=== PATIENT | male | born 1995 | race American Indian/Alaskan Native ===

== ENCOUNTER 2021-11-11 08:10 | Inpatient (IN) | payer OTHER ==
[2021-11-11] MEDS ORDERED: HYDROmorphone 1 MG/1 ML INJ IM ONE (08:22)
[2021-11-11] MEDS ORDERED: ONDANSETRON 4 MG ODT TAB PO NR (08:22)
--- NOTE | 2021-11-11 08:24 | Emergency Department Report ---
ED General Adult HPI - General Chief complaint: Sickle Cell Crisis Stated complaint: SICKLE CELL PAIN COVID+ PUI?: Yes Time Seen by Provider: 11/11/21 08:21 Source: patient, EMS (Verbal report received from emergency medical services. EMS documentation not available at time of chart dictation ), RN notes reviewed Mode of arrival: Stretcher Limitations: No Limitations - History of Present Illness Initial comments: The patient was evaluated in the emergency department for symptoms described in the history of present illness. He/she was evaluated in the context of the global COVID-19 pandemic, which necessitated consideration that the patient might be at risk for infection with the virus that causes COVID-19. Institution al protocols and algorithms that pertain to the evaluation of patients at risk for COVID-19 are in a state of rapid change based on information released by regulatory bodies including the CDC and federal and state organizations. These policies and algorithms were followed during the patient's care in the emergency department. Please note that these policies, procedures and recommendations changed on a rapid basis. During the entire history and physical examination, I had on complete personal protective equipment. The patient is a 26-year-old gentleman, who reports a history of sickle cell disease, and who is reportedly recently diagnosed with COVID-19, on November 07. Patient reports that he is not COVID-19 vaccinated, and also reports that he has been incarcerated for the past 4 years. He presents to the ER today with a complaint of "I am having sickle cell crisis pain." Patient describes a few days of back pain, extremity pain, chest wall pain, associated with Covid. Patient denies vomiting, diaphoresis, posterior leg pain/calf pain and swelling, travel, surgery, immobilization. His includes medications from his longterm facility include azithromycin and acetaminophen. The patient believes he can tolerate morphine and Dilaudid for pain. His pain is sharp throbbing and achy, increases with palpation and range of motion, and it decreases with rest. -: Gradual, days(s) Location: chest, back, left, right, upper extremity, lower extremity Quality: other Consistency: other Improves with: other Worsens with: other Associated Symptoms: other (As per history of present illness) - Related Data Allergies Allergy/AdvReac Type Severity Reaction Status Date / Time codeine Allergy Unknown Verified 11/11/21 09:02 ED Review of Systems ROS: Stated complaint: SICKLE CELL PAIN COVID+ Other details as noted in HPI Constitutional: malaise. denies: fever Eyes: denies: eye discharge ENT: congestion Respiratory: cough Cardiovascular: chest pain Gastrointestinal: denies: abdominal pain Genitourinary: denies: dysuria Musculoskeletal: back pain, arthralgia, myalgia Neurological: headache, weakness ED Physical Exam - General Limitations: No Limitations General appearance: alert, anxious - Head Head exam: Present: atraumatic, normocephalic - Eye Eye exam: Present: normal appearance, EOMI, scleral icterus (Minimal scleral i cterus is appreciated). Absent: nystagmus - ENT ENT exam: Present: normal exam, normal orophraynx, mucous membranes moist, normal external ear exam - Neck Neck exam: Present: normal inspection, full ROM. Absent: tenderness, meningismus - Respiratory Respiratory exam: Present: respiratory distress, chest wall tenderness, other (Pulmonary auscultation not performed secondary to lack of disposable stethoscope). Absent: stridor - Cardiovascular Cardiovascular Exam: Present: other (Cardiac auscultation not performed secondary to lack of disposable stethoscope) - GI/Abdominal GI/Abdominal exam: Present: soft. Absent: distended, tenderness, guarding, rebound, rigid, pulsatile mass - Rectal Rectal exam: Present: deferred - Extremities Exam Extremities exam: Present: normal inspection, full ROM, other (2+ pulses noted in the bilateral upper and lower extremities. There is no palpable cord. The bilateral lower extremities are symmetric. It is lower extremity long bony tenderness.). Absent: pedal edema, calf tenderness - Back Exam Back exam: Present: normal inspection, paraspinal tenderness. Absent: tenderness, CVA tenderness (R), CVA tenderness (L), muscle spasm - Neurological Exam Neurological exam: Present: alert, oriented X3, other (No facial droop. Tongue midline. Extraocular movements intact bilaterally. Facial sensation intact to light touch in V1, V2, V3 distribution bilaterally. 5 and a 5 strength in 4 extremities. Sensation intact to light touch in 4 extremities.). Absent: motor sensory deficit - Psychiatric Psychiatric exam: Present: anxious - Skin Skin exam: Present: warm, dry, intact, normal color. Absent: rash ED Course Vital Signs 11/11/21 11/11/21 11/11/21 10:22 10:28 10:41 Temperature 97.7 F Pulse Rate 71 Respiratory 18 17 17 Rate Blood Pressure 125/73 [Left] O2 Sat by Pulse 95 Oximetry - Reevaluation(s) Reevaluation #1: 11/11/21 09:18 Differential diagnosis, including but not limited to: COVID-19, costochondritis, pneumonia, pneumothorax, sickle cell crisis, myocarditis, pericarditis, coron meagan artery disease Assessment and plan: 26-year-old gentleman with a known history of sickle cell d isease, and recent diagnosis of COVID-19. EMS reports normal vital signs to myself in the field. The patient is not in any significant respiratory distress at this time. As per review of medications from his longterm facility, it appears that he is currently on azithromycin, for unclear reasons. We will obtain appropriate laboratory studies, EKG, x-ray the chest, and treat his symptoms. At the moment, he is resting comfortably on her stretcher, sipping liquid from a Styrofoam cup and a straw, and does not appear to be in significant distress. Presuming negative troponin, normal vital signs, myopericarditis very unlikely, as is pulmonary embolism. He has reproducible chest wall pain on my examination. Presuming negative troponin x1, symptoms present for days, therefore, myocardial infarction is ruled out as per the [employer] clinical policy, this patient is also low risk for major adverse cardiac event as per heart score 11/11/21 10:25 Patient looking much more comfortable at this time. He is found to have a leukocytosis, hyperbilirubinemia, elevated reticulocyte count, and 3% bands. X-ray of the chest suggest pneumonia versus acute chest syndrome. Given leukocytosis, known diagnosis of COVID-19, bandemia, laboratory studies, inability to closely follow-up with an outpatient medical physician, incarcerated status, relative immune compromise, recommend admission. IV fluids and antibiotics ordered. Additional pain medication also ordered. I discussed admission with the patient, and he is agreeable to this plan of care. COVID-19 laboratory studies ordered. Hospital physician, Dr. Marium Maurice to admit to [facility] ED Medical Decision Making - Lab Data Result diagrams: 11/11/21 08:55 11/11/21 08:55 Vital Signs 11/11/21 10:22 Respiratory 18 Rate Lab Results 11/11/21 11/11/21 11/11/21 Range/Units 08:55 08:55 08:55 WBC 13.0 H (4.5-11.0) K/mm3 RBC 2.03 L (3.65-5.03) M/mm3 Hgb 7.2 L (11.8-15.2) gm/dl Hct 21.0 L (35.5-45.6) % MCV 103 H (84-94) fl MCH 35 H (28-32) pg MCHC 34 (32-34) % RDW 19.2 H (13.2-15.2) % Plt Count 202 (140-440) K/mm3 Add Manual Diff Complete Total Counted 100 Seg Neuts % (Manual) 50.0 (40.0-70.0) % Band Neutrophils % 3.0 % Lymphocytes % (Manual) 35.0 (13.4-35.0) % Reactive Lymphs % (Man) 0 % Monocytes % (Manual) 8.0 H (0.0-7.3) % Eosinophils % (Manual) 2.0 (0.0-4.3) % Basophils % (Manual) 0 (0.0-1.8) % Metamyelocytes % 2.0 % Myelocytes % 0 % Promyelocytes % 0 % Blast Cells % 0 % Nucleated RBC % 7.0 H (0.0-0.9) % Seg Neutrophils # Man 6.5 (1.8-7.7) K/mm3 Band Neutrophils # 0.4 K/mm3 Lymphocytes # (Manual) 4.6 (1.2-5.4) K/mm3 Abs React Lymphs (Man) 0.0 K/mm3 Monocytes # (Manual) 1.0 H (0.0-0.8) K/mm3 Eosinophils # (Manual) 0.3 (0.0-0.4) K/mm3 Basophils # (Manual) 0.0 (0.0-0.1) K/mm3 Metamyelocytes # 0.3 K/mm3 Myelocytes # 0.0 K/mm3 Promyelocytes # 0.0 K/mm3 Blast Cells # 0.0 K/mm3 WBC Morphology Not Reportable Hypersegmented Neuts Not Reportable Hyposegmented Neuts Not Reportable Hypogranular Neuts Not Reportable Smudge Cells Not Reportable Toxic Granulation Not Reportable Toxic Vacuolation Not Reportable Dohle Bodies Not Reportable Pelger-Huet Anomaly Not Reportable Aric Rods Not Reportable Platelet Estimate Consistent w auto Clumped Platelets Not Reportable Plt Clumps, EDTA Not Reportable Large Platelets Not Reportable Giant Platelets Not Reportable Platelet Satelliting Not Reportable Plt Morphology Comment Not Reportable RBC Morphology Not Reportable Dimorphic RBCs Not Reportable Polychromasia Few Hypochromasia Not Reportable Poikilocytosis 2+ Anisocytosis 1+ Microcytosis Not Reportable Macrocytosis Not Reportable Spherocytes Not Reportable Pappenheimer Bodies Not Reportable Sickle Cells Few Target Cells Not Reportable Tear Drop Cells Not Reportable Ovalocytes Few Helmet Cells Not Reportable Escobar-[place] Bodies Not Reportable [place] Rings Not Reportable [place] Cells Not Reportable Bite Cells Not Reportable Crenated Cell Not Reportable Elliptocytes 1+ Acanthocytes (Spur) Not Reportable Rouleaux Not Reportable Hemoglobin C Crystals Not Reportable Schistocytes Not Reportable Malaria parasites Not Reportable Percent Retic 8.16 H (0.78-2.58) % Joseph Bodies Not Reportable Hem Pathologist Commnt No PT 13.6 (12.2-14.9) Sec. INR 0.94 (0.87-1.13) Sodium 139 (137-145) mmol/L Potassium 4.2 (3.6-5.0) mmol/L Chloride 102.1 (98-107) mmol/L Carbon Dioxide 22 (22-30) mmol/L Anion Gap 19 mmol/L BUN 6 L (9-20) mg/dL Creatinine 0.4 L (0.8-1.3) mg/dL Estimated GFR > 60 ml/min BUN/Creatinine Ratio 15 % Glucose 105 H (75-100) mg/dL Calcium 9.2 (8.4-10.2) mg/dL Magnesium 2.10 (1.7-2.3) mg/dL Total Bilirubin 5.40 H (0.1-1.2) mg/dL AST 42 H (5-40) units/L ALT 34 (7-56) units/L Alkaline Phosphatase 108 (35-129) units/L Total Creatine Kinase 70 (55-170) units/L Troponin T < 0.010 (0.00-0.029) ng/mL Total Protein 7.3 (6.3-8.2) g/dL Albumin 4.7 (3.9-5) g/dL Albumin/Globulin Ratio 1.8 % Vital Signs 11/11/21 11/11/21 11/11/21 10:22 10:28 10:41 Temperature 97.7 F Pulse Rate 71 Respiratory 18 17 17 Rate Blood Pressure 125/73 [Left] O2 Sat by Pulse 95 Oximetry - EKG Data -: EKG Interpreted by Wa EKG shows normal: sinus rhythm Rate: normal - EKG Data When compared to previous EKG there are: previous EKG unavailable 11/11/21 10:42 The EKG is interpreted at 10: 37 Sinus rhythm, rate 76 bpm. Normal axis, normal P wave axis, normal intervals, motion artifact, QTC is 429 ms, and there is high left ventricular voltage. This is an abnormal EKG. This EKG is not a STEMI - Radiology Data Radiology results: report reviewed, image reviewed CHEST 1 VIEW 11/11/2021 9:39 AM INDICATION / CLINICAL INFORMATION: COVID + hbss pain chest wall pain. COMPARISON: None available. FINDINGS: SUPPORT DEVICES: None. HEART / MEDIASTINUM: Heart size is upper limits of normal. LUNGS / PLEURA: Bilateral interstitial prominence. No focal lung consolidation. No pneumothorax. ADDITIONAL FINDINGS: Mild scoliosis of the thoracic spine. 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 IMPRESSION: 1. Bilateral interstitial prominence is nonspecific but can be seen with small airways disease. No focal lung consolidation. Acute chest syndrome cannot be excluded. Recommend clinical correlation. 2. Additional incidental findings as above. Signer Name: Florentin Dalton MD Signed: 11/11/2021 9:09 AM Workstation Name: [employer] Critical care attestation.: If time is entered above; I have spent that time in minutes in the direct care of this critically ill patient, excluding procedure time. ED Disposition Clinical Impression: COVID-19, Chest wall pain, Sickle cell pain crisis, COVID-19 vaccination not d one Disposition: 09 ADMITTED INPATIENT Is pt being admited?: Yes Does the pt Need Aspirin: No Condition: Good Instructions: Nonspecific Chest Pain, Adult Referrals: PRIMARY CARE, [Primary Care Provider] - 3-5 Days
[2021-11-11] MEDS ORDERED: HYDROmorphone 1 MG/1 ML INJ ONE (08:45)
[2021-11-11] MEDS ORDERED: HYDROmorphone 1 MG/1 ML INJ IV ONE ×4 (09:04→14:28)
[2021-11-11 09:20] LABS: Hemoglobin 7.2 gm/dl (11.8-15.2); Mean Corpuscular HGB Conc 34 % (32-34); Mean Corpuscular Volume 103 fl (84-94); Red Blood Count 2.03 M/mm3 (3.65-5.03); Red Cell Distribution Width 19.2 % (13.2-15.2)
[2021-11-11 09:24] LABS: Platelet Count 202 K/mm3 (140-440)
[2021-11-11 09:32] LABS: INR 0.94 (0.87-1.13)
[2021-11-11 09:38] LABS: Alanine Aminotransferase 34 units/L (7-56); Albumin 4.7 g/dL (3.9-5); Blood Urea Nitrogen 6 mg/dL (9-20); Calcium 9.2 mg/dL (8.4-10.2); Hemolysis Index 16
[2021-11-11 09:43] LABS: BUN/Creatinine Ratio 15
[2021-11-11 10:07] LABS: Band Neutrophils # (Manual) 0.4 K/mm3; Basophils % (Manual) 0 % (0.0-1.8); Total Cells Counted 100
[2021-11-11 10:08] LABS: Anisocytosis 1+; Ovalocytes Few; Poikilocytosis 2+; Sickle Cells Few
[2021-11-11 10:09] LABS: Platelet Estimate Consistent w Auto
--- NOTE | 2021-11-11 10:13 | XRay Report ---
CHEST 1 VIEW 11/11/2021 9:39 AM INDICATION / CLINICAL INFORMATION: COVID + hbss pain chest wall pain. COMPARISON: None available. FINDINGS: SUPPORT DEVICES: None. HEART / MEDIASTINUM: Heart size is upper limits of normal. LUNGS / PLEURA: Bilateral interstitial prominence. No focal lung consolidation. No pneumothorax. ADDITIONAL FINDINGS: Mild scoliosis of the thoracic spine. 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 IMPRESSION: 1. Bilateral interstitial prominence is nonspecific but can be seen with small airways disease. No fo alcira lung consolidation. Acute chest syndrome cannot be excluded. Recommend clinical correlation. 2. Additional incidental findings as above. Signer Name: Florentin Dalton MD Signed: 11/11/2021 10:09 AM Workstation Name: [employer]
[2021-11-11] MEDS ORDERED: KETOROLAC 30 MG/1 ML INJ IV ONE ×2 (10:18→14:30)
[2021-11-11] MEDS ORDERED: cefTRIAXone/NS 1 GM/50 ML 1 GM/50 ML BAG IV ONE (10:22)
[2021-11-11] MEDS ORDERED: AZITHROMYCIN/NS 500 MG/250 ML 500 MG/250 ML BAG IV ONE (10:22)
[2021-11-11] MEDS ORDERED: SODIUM CHLORIDE 0.9% 1000 ML 1,000 ML IV ONE (10:24)
[2021-11-11 11:20] LABS: C-Reactive Protein 1.2 mg/dL (0.00-1.30)
--- NOTE | 2021-11-11 14:29 | History and Physical Report ---
History of Present Illness Date of examination: 11/11/21 Date of admission: 11/11/21 10:27 History of present illness: 26-year-old -[place] male patient with significant past medical history sickle cell disease, and who is reportedly recently diagnosed with COVID-19, on November 07. Patient reports that he is not COVID-19 vaccinated, and also reports that he has been incarcerated for the past 4 years. He presents to the ER today with a complaint of "I am having sickle cell crisis pain." Patient describes a few days of back pain, extremity pain, chest wall pain, associated with Covid. Patient denies nausea ,vomiting, diaphoresis, posterior leg pain/calf pain and swelling, travel, surgery, immobilization. His includes medications from his long term facility include azithromycin and acetaminophen. The patient believes he can tolerate morphine and Dilaudid for pain. His pain is sharp throbbing and achy, increases with palpation and range of motion, and it decreases with rest. Initial work-up in the emergency room, chest x-ray bilateral interstitial prominence, leukocytosis, anemia with hemoglobin of 7.2. Denies fever or diaphoresis Reports that his he was positive for COVID-19 4 days ago. Past History Past Medical History: other (Sickle cell disease) Past Surgical History: No surgical history Social history: denies: smoking, alcohol abuse Family history: no significant family history Medications and Allergies Allergies Allergy/AdvReac Type Severity Reaction Status Date / Time codeine Allergy Unknown Verified 11/11/21 09:02 Active Meds: Active Medications Ondansetron HCl (Ondansetron 4 Mg Odt Tab) 4 mg PO NOW NR Stop: 11/11/21 23:00 Review of Systems Constitutional: weakness, no weight loss, no weight gain, no anorexia, no fatigue Ears, nose, mouth and throat: no nasal congestion, no nasal discharge Cardiovascular: no chest pain, no orthopnea, no palpitations Respiratory: cough with sputum, shortness of breath Gastrointestinal: no abdominal pain, no nausea, no vomiting Genitourinary Male: no dysuria, no hematuria Musculoskeletal: no myalgias, no arthritis Integumentary: no rash, no lesions Neurological: weakness, no tingling, no seizures, no syncope Psychiatric: no anxiety, no depression Endocrine: no cold intolerance, no heat intolerance Hematologic/Lymphatic: no easy bruising, no easy bleeding Allergic/Immunologic: no urticaria, no allergic rhinitis Exam - Constitutional Vitals: Temp Pulse Resp BP Pulse Ox 97.7 F 71 21 125/73 95 11/11/21 10:28 11/11/21 10:28 11/11/21 12:27 11/11/21 10:28 11/11/21 10:28 General appearance: Present: no acute distress, well-nourished - EENT Eyes: Present: PERRL, EOM intact - Neck Neck: Present: supple, normal ROM - Respiratory Respiratory effort: normal Respiratory: bilateral: diminished, rhonchi, negative: rales, wheezing - Cardiovascular Rhythm: regular Heart Sounds: Present: S1 & S2 - Extremities Extremities: no ischemia, No edema - Abdominal General gastrointestinal: Present: soft, non-tender, non-distended, normal bowel sounds - Integumentary Integumentary: Present: clear, warm - Musculoskeletal Musculoskeletal: strength equal bilaterally, generalized weakness - Psychiatric Psychiatric: appropriate mood/affect, cooperative - Neurologic Neurologic: moves all extremities HEART Score - HEART Score Troponin: Troponin T < 0.010 ng/mL (0.00-0.029) 11/11/21 08:55 Results - Labs CBC & Chem 7: 11/11/21 08:55 11/11/21 11:04 Labs: Abnormal lab results 11/11/21 11/11/21 11/11/21 Range/Units 08:55 08:55 11:04 WBC 13.0 H (4.5-11.0) K/mm3 RBC 2.03 L (3.65-5.03) M/mm3 Hgb 7.2 L (11.8-15.2) gm/dl Hct 21.0 L (35.5-45.6) % MCV 103 H (84-94) fl MCH 35 H (28-32) pg RDW 19.2 H (13.2-15.2) % Monocytes % (Manual) 8.0 H (0.0-7.3) % Nucleated RBC % 7.0 H (0.0-0.9) % Monocytes # (Manual) 1.0 H (0.0-0.8) K/mm3 Percent Retic 8.16 H (0.78-2.58) % D-Dimer 857.00 H (0-234) ng/mlDDU BUN 6 L (9-20) mg/dL Creatinine 0.4 L (0.8-1.3) mg/dL Glucose 105 H (75-100) mg/dL Ferritin (30.0-300.0) ng/mL Total Bilirubin 5.40 H (0.1-1.2) mg/dL AST 42 H (5-40) units/L Lactate Dehydrogenase (91-180) units/L 11/11/21 11/11/21 Range/Units 11:04 11:18 WBC (4.5-11.0) K/mm3 RBC (3.65-5.03) M/mm3 Hgb (11.8-15.2) gm/dl Hct (35.5-45.6) % MCV (84-94) fl MCH (28-32) pg RDW (13.2-15.2) % Monocytes % (Manual) (0.0-7.3) % Nucleated RBC % (0.0-0.9) % Monocytes # (Manual) (0.0-0.8) K/mm3 Percent Retic (0.78-2.58) % D-Dimer (0-234) ng/mlDDU BUN (9-20) mg/dL Creatinine (0.8-1.3) mg/dL Glucose 106 H (75-100) mg/dL Ferritin 2237.0 H (30.0-300.0) ng/mL Total Bilirubin (0.1-1.2) mg/dL AST (5-40) units/L Lactate Dehydrogenase 443 H (91-180) units/L Assessment and Plan --Sickle cell disease with painful crisis; IV fluids, pain medication, oxygen titrate O2 sats to more than 90% Thiamine folic acid Supportive care --Sickle cell anemia; hemoglobin seven-point Closely monitor H&H, transfuse as needed --History of COVID-19 positive status; Elevated inflammatory markers --Elevated D-dimers :check CTA to rule out PE Check lower extremity venous Doppler to rule out DVT --Leukocytosis; Possible UTI, empiric antibiotics Closely monitor --Obesity; BMI 30.0 Advised diet modification, exercise as tolerated and weight reduction When medically stable --DVT prophylaxis; Subcu Lovenox Closely monitor patient and adjust the management as needed Plan of care reviewed with the patient and his nurse Lower enforcement officers at the bedside
[2021-11-11] MEDS ORDERED: SODIUM CHLORIDE 0.9% 1000 ML 1,000 ML ONE (14:34)
[2021-11-11] MEDS ORDERED: MAGNESIUM HYDROXIDE (MOM) ORAL LIQD UDC PO PRN (14:37)
[2021-11-11] MEDS ORDERED: ONDANSETRON 4 MG/2 ML INJ IV PRN (14:40)
[2021-11-11] MEDS ORDERED: HYDROmorphone 2 MG/1 ML INJ IV PRN (14:40)
[2021-11-11] MEDS: ALPRAZolam 0.25 MG TAB PO PRN (15:34)
[2021-11-11] MEDS: MULTIVITAMINS ,THERAPEUTIC TAB PO SCH (16:00)
--- NOTE | 2021-11-11 18:47 | Vascular Lab Report ---
DUPLEX DOPPLER LOWER EXTREMITY VEINS, BILATERAL INDICATION / CLINICAL INFORMATION: Elevated D-dimers COVID-19/rule out DVT/. TECHNIQUE: Duplex doppler imaging was performed through the veins of both lower extremities using venous santo sandy and other maneuvers. COMPARISON: None available. FINDINGS: RIGHT COMMON FEMORAL VEIN: Negative. RIGHT FEMORAL VEIN: Negative. RIGHT POPLITEAL VEIN: Negative. RIGHT CALF VEINS: Negative. LEFT COMMON FEMORAL VEIN: Negative. LEFT FEMORAL VEIN: Negative. LEFT POPLITEAL VEIN: Negative. LEFT CALF VEINS: Negative. ADDITIONAL FINDINGS: None. IMPRESSION: 1. No sonographic evidence for DVT in either lower extremity. Signer Name: Leonard Rose MD Signed: 11/11/2021 6:42 PM Workstation Name: [id number]
[2021-11-11] MEDS: HYDROmorphone 2 MG/1 ML INJ IV PRN ×2 (19:25→22:46)
--- NOTE | 2021-11-11 19:35 | Cat Scan Report ---
CTA CHEST WITH IV CONTRAST INDICATION: Hypoxia/COVID-19/elevated D-dimers/rule out PE. TECHNIQUE: Axial CT images were obtained through the chest after injection of 100 cc Omni 350 IV contrast. 3 tamara ne MIP reconstructions were produced. All CT scans at this location are performed using CT dose reduc tion for ALARA by means of automated exposure control. COMPARISON: None available. FINDINGS: PULMONARY ARTERIES: No pulmonary emboli. THORACIC AORTA: No acute abnormality. HEART: Normal. CORONARY ARTERIES: No significant calcification. PLEURA: No pleural effusion. No pneumothorax. LYMPH NODES: No significant adenopathy. LUNGS: Moderate airspace consolidation both lower lobes with mild intimal disease both upper and righ t middle lobes characteristic for pneumonia ADDITIONAL FINDINGS: None. UPPER ABDOMEN: No acute findings. SKELETAL STRUCTURES: No significant osseous abnormality. IMPRESSION: 1. No CT evidence for pulmonary embolism. 2. Moderate multifocal bilateral pneumonia Signer Name: Leonard Rose MD Signed: 11/11/2021 7:30 PM Workstation Name: [id number]
[2021-11-11] MEDS: SENNOSIDES 8.6 MG TAB PO SCH (22:38)
[2021-11-12] MEDS: HYDROmorphone 2 MG/1 ML INJ IV PRN ×4 (02:19→12:00)
[2021-11-12] MEDS: ALPRAZolam 0.25 MG TAB PO PRN ×2 (04:30→20:47)
--- NOTE | 2021-11-12 09:58 | Electrocardiograph Report ---
[facility] Test Date: 2021-11-11 Test Time: 10:37:46 Pat Name: NATALIA NEWTON Department: Room: [place] [address] Gender: M Modeling Director: NADJA : 1995 Requested By: ANDI CARLTON Order Number: [id number] Reading MD: Jamal Kc Measurements Intervals [place] Rate: 76 P: 56 CA: 178 QRS: 34 QRSD: 102 T: 10 QT: 380 QTc: 429 Interpretive Statements Sinus arrhythmia No previous ECG available for comparison Electronically Signed On 11-12-2021 9:58:03 EST by Jamal Kc
[2021-11-12] MEDS ORDERED: cefTRIAXone/NS 1 GM/50 ML 1 GM/50 ML BAG IV ONE (10:00)
[2021-11-12] MEDS ORDERED: MULTIVITAMINS ,THERAPEUTIC TAB PO SCH (10:00)
[2021-11-12] MEDS ORDERED: cefTRIAXone/NS 1 GM/50 ML 1 GM/50 ML BAG IV SCH (10:00)
[2021-11-12] MEDS: HYDROmorphone 1 MG/1 ML INJ IV PRN ×2 (15:15→23:27)
--- NOTE | 2021-11-12 15:16 | Progress Note ---
Assessment and Plan Assessment and plan: --History of COVID-19 positive status; Elevated inflammatory markers Oxygen as needed, home O2 evaluation Continue dexamethasone --Sickle cell disease with painful crisis; IV fluids, pain medication, oxygen titrate O2 sats to more than 90% Thiamine folic acid, Supportive care --Sickle cell anemia; hemoglobin 7.2 Closely monitor H&H, transfuse as needed --Elevated D-dimers :CTA negative for PE lower extremity venous Doppler negative for DVT --Leukocytosis; Possible UTI, empiric antibiotics Closely monitor --Obesity; BMI 30.0 Advised diet modification, exercise as tolerated and weight reduction When medically stable --DVT prophylaxis; Subcu Lovenox Closely monitor patient and adjust the management as needed Plan of care reviewed with the patient and his nurse Law enforcement officers at the bedside Continue current management Home O2 evaluation Possible discharge in 1 to 2 days if stable History Interval history: I have seen and examined the patient at the bedside Patient's chart and medications reviewed Patient feels slightly better complains of generalized body pains Hospitalist Physical - Constitutional Vitals: Temp Pulse Resp BP Pulse Ox 97.8 F 74 19 121/74 100 11/11/21 16:18 11/12/21 09:45 11/12/21 12:30 11/12/21 09:45 11/12/21 09:45 General appearance: Present: no acute distress, well-nourished - EENT Eyes: Present: PERRL, EOM intact - Neck Neck: Present: supple, normal ROM - Respiratory Respiratory effort: normal Respiratory: bilateral: diminished, negative: rales, rhonchi, wheezing - Cardiovascular Rhythm: regular Heart Sounds: Present: S1 & S2 - Extremities Extremities: no ischemia, No edema - Abdominal General gastrointestinal: soft, non-tender, non-distended, normal bowel sounds - Integumentary Integumentary: Present: clear, warm - Psychiatric Psychiatric: appropriate mood/affect, cooperative - Neurologic Neurologic: CNII-XII intact, moves all extremities HEART Score - HEART Score Troponin: Troponin T < 0.010 ng/mL (0.00-0.029) 11/11/21 08:55 Results - Labs CBC & Chem 7: 11/11/21 08:55 11/11/21 11:04 Labs: Laboratory Last Values WBC 13.0 K/mm3 (4.5-11.0) H 11/11/21 08:55 RBC 2.03 M/mm3 (3.65-5.03) L 11/11/21 08:55 Hgb 7.2 gm/dl (11.8-15.2) L 11/11/21 08:55 Hct 21.0 % (35.5-45.6) L 11/11/21 08:55 MCV 103 fl (84-94) H 11/11/21 08:55 MCH 35 pg (28-32) H 11/11/21 08:55 MCHC 34 % (32-34) 11/11/21 08:55 RDW 19.2 % (13.2-15.2) H 11/11/21 08:55 Plt Count 202 K/mm3 (140-440) 11/11/21 08:55 Add Manual Diff Complete 11/11/21 08:55 Total Counted 100 11/11/21 08:55 Seg Neuts % (Manual) 50.0 % (40.0-70.0) 11/11/21 08:55 Band Neutrophils % 3.0 % 11/11/21 08:55 Lymphocytes % (Manual) 35.0 % (13.4-35.0) 11/11/21 08:55 Reactive Lymphs % (Man) 0 % 11/11/21 08:55 Monocytes % (Manual) 8.0 % (0.0-7.3) H 11/11/21 08:55 Eosinophils % (Manual) 2.0 % (0.0-4.3) 11/11/21 08:55 Basophils % (Manual) 0 % (0.0-1.8) 11/11/21 08:55 Metamyelocytes % 2.0 % 11/11/21 08:55 Myelocytes % 0 % 11/11/21 08:55 Promyelocytes % 0 % 11/11/21 08:55 Blast Cells % 0 % 11/11/21 08:55 Nucleated RBC % 7.0 % (0.0-0.9) H 11/11/21 08:55 Seg Neutrophils # Man 6.5 K/mm3 (1.8-7.7) 11/11/21 08:55 Band Neutrophils # 0.4 K/mm3 11/11/21 08:55 Lymphocytes # (Manual) 4.6 K/mm3 (1.2-5.4) 11/11/21 08:55 Abs React Lymphs (Man) 0.0 K/mm3 11/11/21 08:55 Monocytes # (Manual) 1.0 K/mm3 (0.0-0.8) H 11/11/21 08:55 Eosinophils # (Manual) 0.3 K/mm3 (0.0-0.4) 11/11/21 08:55 Basophils # (Manual) 0.0 K/mm3 (0.0-0.1) 11/11/21 08:55 Metamyelocytes # 0.3 K/mm3 11/11/21 08:55 Myelocytes # 0.0 K/mm3 11/11/21 08:55 Promyelocytes # 0.0 K/mm3 11/11/21 08:55 Blast Cells # 0.0 K/mm3 11/11/21 08:55 WBC Morphology Not Reportable 11/11/21 08:55 Hypersegmented Neuts Not Reportable 11/11/21 08:55 Hyposegmented Neuts Not Reportable 11/11/21 08:55 Hypogranular Neuts Not Reportable 11/11/21 08:55 Smudge Cells Not Reportable 11/11/21 08:55 Toxic Granulation Not Reportable 11/11/21 08:55 Toxic Vacuolation Not Reportable 11/11/21 08:55 Dohle Bodies Not Reportable 11/11/21 08:55 Pelger-Huet Anomaly Not Reportable 11/11/21 08:55 Aric Rods Not Reportable 11/11/21 08:55 Platelet Estimate Consistent w auto 11/11/21 08:55 Clumped Platelets Not Reportable 11/11/21 08:55 Plt Clumps, EDTA Not Reportable 11/11/21 08:55 Large Platelets Not Reportable 11/11/21 08:55 Giant Platelets Not Reportable 11/11/21 08:55 Platelet Satelliting Not Reportable 11/11/21 08:55 Plt Morphology Comment Not Reportable 11/11/21 08:55 RBC Morphology Not Reportable 11/11/21 08:55 Dimorphic RBCs Not Reportable 11/11/21 08:55 Polychromasia Few 11/11/21 08:55 Hypochromasia Not Reportable 11/11/21 08:55 Poikilocytosis 2+ 11/11/21 08:55 Anisocytosis 1+ 11/11/21 08:55 Microcytosis Not Reportable 11/11/21 08:55 Macrocytosis Not Reportable 11/11/21 08:55 Spherocytes Not Reportable 11/11/21 08:55 Pappenheimer Bodies Not Reportable 11/11/21 08:55 Sickle Cells Few 11/11/21 08:55 Target Cells Not Reportable 11/11/21 08:55 Tear Drop Cells Not Reportable 11/11/21 08:55 Ovalocytes Few 11/11/21 08:55 Helmet Cells Not Reportable 11/11/21 08:55 Escobar-[place] Bodies Not Reportable 11/11/21 08:55 [place] Rings Not Reportable 11/11/21 08:55 Kaveh Cells Not Reportable 11/11/21 08:55 Bite Cells Not Reportable 11/11/21 08:55 Crenated Cell Not Reportable 11/11/21 08:55 Elliptocytes 1+ 11/11/21 08:55 Acanthocytes (Spur) Not Reportable 11/11/21 08:55 Rouleaux Not Reportable 11/11/21 08:55 Hemoglobin C Crystals Not Reportable 11/11/21 08:55 Schistocytes Not Reportable 11/11/21 08:55 Malaria parasites Not Reportable 11/11/21 08:55 Percent Retic 8.16 % (0.78-2.58) H 11/11/21 08:55 Joseph Bodies Not Reportable 11/11/21 08:55 Hem Pathologist Commnt No 11/11/21 08:55 PT 13.6 Sec. (12.2-14.9) 11/11/21 08:55 INR 0.94 (0.87-1.13) 11/11/21 08:55 D-Dimer 857.00 ng/mlDDU (0-234) H 11/11/21 11:04 Sodium 139 mmol/L (137-145) 11/11/21 08:55 Potassium 4.2 mmol/L (3.6-5.0) 11/11/21 08:55 Chloride 102.1 mmol/L (98-107) 11/11/21 08:55 Carbon Dioxide 22 mmol/L (22-30) 11/11/21 08:55 Anion Gap 19 mmol/L 11/11/21 08:55 BUN 6 mg/dL (9-20) L 11/11/21 08:55 Creatinine 0.4 mg/dL (0.8-1.3) L 11/11/21 08:55 Estimated GFR > 60 ml/min 11/11/21 08:55 BUN/Creatinine Ratio 15 % 11/11/21 08:55 Glucose 106 mg/dL (75-100) H 11/11/21 11:04 Lactic Acid 0.90 mmol/L (0.7-2.0) 11/11/21 11:18 Calcium 9.2 mg/dL (8.4-10.2) 11/11/21 08:55 Magnesium 2.10 mg/dL (1.7-2.3) 11/11/21 08:55 Ferritin 2237.0 ng/mL (30.0-300.0) H 11/11/21 11:18 Total Bilirubin 5.40 mg/dL (0.1-1.2) H 11/11/21 08:55 AST 42 units/L (5-40) H 11/11/21 08:55 ALT 34 units/L (7-56) 11/11/21 08:55 Alkaline Phosphatase 108 units/L (35-129) 11/11/21 08:55 Lactate Dehydrogenase 443 units/L (91-180) H 11/11/21 11:04 Total Creatine Kinase 70 units/L (55-170) 11/11/21 08:55 Troponin T < 0.010 ng/mL (0.00-0.029) 11/11/21 08:55 C-Reactive Protein 1.20 mg/dL (0.00-1.30) 11/11/21 11:04 Total Protein 7.3 g/dL (6.3-8.2) 11/11/21 08:55 Albumin 4.7 g/dL (3.9-5) 11/11/21 08:55 Albumin/Globulin Ratio 1.8 % 11/11/21 08:55 Procalcitonin 0.16 ng/mL (<0.15) 11/11/21 11:18 Microbiology: Microbiology 11/11/21 11:18 Peripheral/Venous Blood Culture - Preliminary NO GROWTH AFTER 24 HOURS 11/11/21 11:18 Peripheral/Venous Blood Culture - Preliminary NO GROWTH AFTER 24 HOURS Active Medications - Current Medications Current Medications: Generic Name Dose Route Start Last Admin Trade Name Freq PRN Reason Stop Dose Admin Alprazolam 0.25 mg 11/11/21 14:40 11/12/21 04:30 Alprazolam 0.25 Mg Tab PO 0.25 mg Q8H PRN Administration Anxiety Bisacodyl 10 mg 11/11/21 14:40 Bisacodyl 10 Mg Rect Supp [place] QDAY PRN Constipation unrelieved by MOM Folic Acid 1 mg 11/12/21 10:00 Folic Acid 1 Mg Tab PO QDAY ARYA Hydromorphone HCl 1 mg 11/12/21 15:08 Hydromorphone 1 Mg/1 Ml Inj IV Q8H PRN Pain , Severe (7-10) Ceftriaxone Sodium 2 gm in 100 mls @ 200 mls/hr 11/12/21 10:00 Rocephin/Ns 2 Gm/100 Ml IV 11/15/21 10:29 Q24HR ARYA Magnesium Hydroxide 30 ml 11/11/21 14:37 Magnesium Hydroxide (Mom) Oral Liqd Udc PO Q4H PRN Constipation Multivitamins 1 each 11/11/21 15:00 11/11/21 16:00 Multivitamins ,Therapeutic Tab PO 1 each QDAY ARYA Administration Ondansetron HCl 4 mg 11/11/21 14:40 Ondansetron 4 Mg/2 Ml Inj IV Q8H PRN Nausea And Vomiting Senna 17.2 mg 11/11/21 22:00 11/11/21 22:38 Sennosides 8.6 Mg Tab PO 17.2 mg QHS ARYA Administration
[2021-11-12] MEDS: FOLIC ACID 1 MG TAB PO SCH (23:24)
[2021-11-12] MEDS: cefTRIAXone/NS 2 GM/100 ML 2 GM/100 ML BAG IV SCH (23:25)
[2021-11-12] MEDS: MULTIVITAMINS ,THERAPEUTIC TAB PO SCH (23:25)
[2021-11-12] MEDS: SENNOSIDES 8.6 MG TAB PO SCH (23:26)
[2021-11-13] MEDS: ALPRAZolam 0.25 MG TAB PO PRN ×2 (06:33→15:19)
[2021-11-13] MEDS: HYDROmorphone 1 MG/1 ML INJ IV PRN ×2 (07:28→17:20)
[2021-11-13 12:07] LABS: Hematocrit 23.2 % (35.5-45.6); Hemoglobin 7.7 gm/dl (11.8-15.2); Mean Corpuscular HGB Conc 33 % (32-34); Mean Corpuscular Volume 103 fl (84-94); Platelet Count 200 K/mm3 (140-440); Red Blood Count 2.26 M/mm3 (3.65-5.03)
[2021-11-13 12:10] LABS: Red Cell Distribution Width 20.5 % (13.2-15.2)
[2021-11-13 12:25] LABS: Blood Urea Nitrogen 7 mg/dL (9-20); Calcium 9.1 mg/dL (8.4-10.2); Hemolysis Index 12
[2021-11-13 12:30] LABS: BUN/Creatinine Ratio 18
[2021-11-13] MEDS: FOLIC ACID 1 MG TAB PO SCH (13:29)
[2021-11-13] MEDS: cefTRIAXone/NS 2 GM/100 ML 2 GM/100 ML BAG IV SCH (13:29)
[2021-11-13] MEDS: MULTIVITAMINS ,THERAPEUTIC TAB PO SCH (13:29)
[2021-11-13 15:12] LABS: Band Neutrophils # (Manual) 0.6 K/mm3; Basophils % (Manual) 0 % (0.0-1.8); Eosinophils % (Manual) 0 % (0.0-4.3); Myelocytes # (Manual) 0.3 K/mm3; Total Cells Counted 100
[2021-11-13 15:13] LABS: Anisocytosis 2+; Poikilocytosis 2+; Sickle Cells Few
[2021-11-13 15:15] LABS: Spherocytes 2+; Target Cells 1+
[2021-11-13 15:25] LABS: Platelet Estimate Consistent w Auto
--- NOTE | 2021-11-13 17:43 | Progress Note ---
Assessment and Plan Assessment and plan: --COVID-19 positive status; Elevated inflammatory markers Oxygen as needed, home O2 evaluation Continue dexamethasone Patient is saturating well on room air -- History of COVID-19 pneumonia prior to admission --multifocal bilateral pneumonia; Empiric antibiotics Rocephin and Zithromax Check procalcitonin levels ID consultation --Sickle cell disease with painful crisis; IV fluids, pain medication, oxygen titrate O2 sats to more than 90% Thiamine folic acid, Supportive care --Sickle cell anemia; hemoglobin 7.2-7.7 Closely monitor H&H, transfuse as needed --Elevated D-dimers :CTA negative for PE lower extremity venous Doppler negative for DVT --Leukocytosis; worsening Possible UTI, empiric antibiotics Closely monitor --Obesity; BMI 30.0 Advised diet modification, exercise as tolerated and weight reduction When medically stable --DVT prophylaxis; Subcu Lovenox Closely monitor patient and adjust the management as needed Plan of care reviewed with the patient and his nurse Law enforcement officers at the bedside Continue current management Home O2 evaluation Possible discharge in 1 to 2 days if stable 11/13/2021; COVID-positive, elevated inflammatory markers Patient also has multifocal pneumonia and UTI, on IV Zithromax and Rocephin Follow cultures, worsening leukocytosis, consider ID evaluation Continue current management History Interval history: I have seen and examined the patient at the bedside Patient's chart and medications reviewed Patient is not contacted droplet isolation Ill looking, not in acute distress Hospitalist Physical - Constitutional Vitals: Temp Pulse Resp BP Pulse Ox 97.8 F 116 H 18 111/61 100 11/11/21 16:18 11/13/21 07:51 11/13/21 07:51 11/13/21 07:51 11/13/21 07:51 General appearance: Present: no acute distress, well-nourished - EENT Eyes: Present: PERRL, EOM intact - Neck Neck: Present: supple, normal ROM - Respiratory Respiratory effort: normal Respiratory: bilateral: diminished, negative: rales, rhonchi, wheezing - Cardiovascular Rhythm: regular Heart Sounds: Present: S1 & S2 - Extremities Extremities: no ischemia, No edema - Abdominal General gastrointestinal: soft, non-tender, non-distended, normal bowel sounds - Integumentary Integumentary: Present: clear, warm - Psychiatric Psychiatric: appropriate mood/affect, cooperative - Neurologic Neurologic: CNII-XII intact, moves all extremities HEART Score - HEART Score Troponin: Troponin T < 0.010 ng/mL (0.00-0.029) 11/11/21 08:55 Results - Labs CBC & Chem 7: 11/13/21 11:37 11/13/21 11:37 Labs: Laboratory Last Values WBC 27.6 K/mm3 (4.5-11.0) H 11/13/21 11:37 RBC 2.26 M/mm3 (3.65-5.03) L 11/13/21 11:37 Hgb 7.7 gm/dl (11.8-15.2) L 11/13/21 11:37 Hct 23.2 % (35.5-45.6) L 11/13/21 11:37 MCV 103 fl (84-94) H 11/13/21 11:37 MCH 34 pg (28-32) H 11/13/21 11:37 MCHC 33 % (32-34) 11/13/21 11:37 RDW 20.5 % (13.2-15.2) H 11/13/21 11:37 Plt Count 200 K/mm3 (140-440) 11/13/21 11:37 Add Manual Diff Complete 11/13/21 11:37 Total Counted 100 11/13/21 11:37 Seg Neuts % (Manual) 77.0 % (40.0-70.0) H 11/13/21 11:37 Band Neutrophils % 2.0 % 11/13/21 11:37 Lymphocytes % (Manual) 17.0 % (13.4-35.0) 11/13/21 11:37 Reactive Lymphs % (Man) 1.0 % 11/13/21 11:37 Monocytes % (Manual) 2.0 % (0.0-7.3) 11/13/21 11:37 Eosinophils % (Manual) 0 % (0.0-4.3) 11/13/21 11:37 Basophils % (Manual) 0 % (0.0-1.8) 11/13/21 11:37 Metamyelocytes % 0 % 11/13/21 11:37 Myelocytes % 1.0 % 11/13/21 11:37 Promyelocytes % 0 % 11/13/21 11:37 Blast Cells % 0 % 11/13/21 11:37 Nucleated RBC % 19.0 % (0.0-0.9) H 11/13/21 11:37 Seg Neutrophils # Man 21.3 K/mm3 (1.8-7.7) H 11/13/21 11:37 Band Neutrophils # 0.6 K/mm3 11/13/21 11:37 Lymphocytes # (Manual) 4.7 K/mm3 (1.2-5.4) 11/13/21 11:37 Abs React Lymphs (Man) 0.3 K/mm3 11/13/21 11:37 Monocytes # (Manual) 0.6 K/mm3 (0.0-0.8) 11/13/21 11:37 Eosinophils # (Manual) 0.0 K/mm3 (0.0-0.4) 11/13/21 11:37 Basophils # (Manual) 0.0 K/mm3 (0.0-0.1) 11/13/21 11:37 Metamyelocytes # 0.0 K/mm3 11/13/21 11:37 Myelocytes # 0.3 K/mm3 11/13/21 11:37 Promyelocytes # 0.0 K/mm3 11/13/21 11:37 Blast Cells # 0.0 K/mm3 11/13/21 11:37 WBC Morphology Not Reportable 11/13/21 11:37 Hypersegmented Neuts Not Reportable 11/13/21 11:37 Hyposegmented Neuts Not Reportable 11/13/21 11:37 Hypogranular Neuts Not Reportable 11/13/21 11:37 Smudge Cells Not Reportable 11/13/21 11:37 Toxic Granulation Not Reportable 11/13/21 11:37 Toxic Vacuolation Not Reportable 11/13/21 11:37 Dohle Bodies Not Reportable 11/13/21 11:37 Pelger-Huet Anomaly Not Reportable 11/13/21 11:37 Aric Rods Not Reportable 11/13/21 11:37 Platelet Estimate Consistent w auto 11/13/21 11:37 Clumped Platelets Not Reportable 11/13/21 11:37 Plt Clumps, EDTA Not Reportable 11/13/21 11:37 Large Platelets Not Reportable 11/13/21 11:37 Giant Platelets Not Reportable 11/13/21 11:37 Platelet Satelliting Not Reportable 11/13/21 11:37 Plt Morphology Comment Not Reportable 11/13/21 11:37 RBC Morphology Not Reportable 11/13/21 11:37 Dimorphic RBCs Not Reportable 11/13/21 11:37 Polychromasia 1+ 11/13/21 11:37 Hypochromasia Not Reportable 11/13/21 11:37 Poikilocytosis 2+ 11/13/21 11:37 Anisocytosis 2+ 11/13/21 11:37 Microcytosis Not Reportable 11/13/21 11:37 Macrocytosis Not Reportable 11/13/21 11:37 Spherocytes 2+ 11/13/21 11:37 Pappenheimer Bodies Not Reportable 11/13/21 11:37 Sickle Cells Few 11/13/21 11:37 Target Cells 1+ 11/13/21 11:37 Tear Drop Cells Not Reportable 11/13/21 11:37 Ovalocytes Not Reportable 11/13/21 11:37 Helmet Cells Not Reportable 11/13/21 11:37 Esc[place] Bodies Not Reportable 11/13/21 11:37 [place] Rings Not Reportable 11/13/21 11:37 Kaveh Cells Not Reportable 11/13/21 11:37 Bite Cells Not Reportable 11/13/21 11:37 Crenated Cell Not Reportable 11/13/21 11:37 Elliptocytes Not Reportable 11/13/21 11:37 Acanthocytes (Spur) Not Reportable 11/13/21 11:37 Rouleaux Not Reportable 11/13/21 11:37 Hemoglobin C Crystals Not Reportable 11/13/21 11:37 Schistocytes Not Reportable 11/13/21 11:37 Malaria parasites Not Reportable 11/13/21 11:37 Percent Retic 8.16 % (0.78-2.58) H 11/11/21 08:55 Joseph Bodies Not Reportable 11/13/21 11:37 Hem Pathologist Commnt No 11/13/21 11:37 PT 13.6 Sec. (12.2-14.9) 11/11/21 08:55 INR 0.94 (0.87-1.13) 11/11/21 08:55 D-Dimer 857.00 ng/mlDDU (0-234) H 11/11/21 11:04 Sodium 136 mmol/L (137-145) L 11/13/21 11:37 Potassium 3.8 mmol/L (3.6-5.0) 11/13/21 11:37 Chloride 96.7 mmol/L (98-107) L 11/13/21 11:37 Carbon Dioxide 26 mmol/L (22-30) 11/13/21 11:37 Anion Gap 17 mmol/L 11/13/21 11:37 BUN 7 mg/dL (9-20) L 11/13/21 11:37 Creatinine 0.4 mg/dL (0.8-1.3) L 11/13/21 11:37 Estimated GFR > 60 ml/min 11/13/21 11:37 BUN/Creatinine Ratio 18 % 11/13/21 11:37 Glucose 103 mg/dL (75-100) H 11/13/21 11:37 Lactic Acid 0.90 mmol/L (0.7-2.0) 11/11/21 11:18 Calcium 9.1 mg/dL (8.4-10.2) 11/13/21 11:37 Magnesium 2.10 mg/dL (1.7-2.3) 11/13/21 11:37 Ferritin 2237.0 ng/mL (30.0-300.0) H 11/11/21 11:18 Total Bilirubin 5.40 mg/dL (0.1-1.2) H 11/11/21 08:55 AST 42 units/L (5-40) H 11/11/21 08:55 ALT 34 units/L (7-56) 11/11/21 08:55 Alkaline Phosphatase 108 units/L (35-129) 11/11/21 08:55 Lactate Dehydrogenase 443 units/L (91-180) H 11/11/21 11:04 Total Creatine Kinase 70 units/L (55-170) 11/11/21 08:55 Troponin T < 0.010 ng/mL (0.00-0.029) 11/11/21 08:55 C-Reactive Protein 1.20 mg/dL (0.00-1.30) 11/11/21 11:04 Total Protein 7.3 g/dL (6.3-8.2) 11/11/21 08:55 Albumin 4.7 g/dL (3.9-5) 11/11/21 08:55 Albumin/Globulin Ratio 1.8 % 11/11/21 08:55 Procalcitonin 0.16 ng/mL (<0.15) 11/11/21 11:18 Coronavirus (PCR) Positive (Negative) A 11/13/21 Unknown Microbiology: Microbiology 11/11/21 11:18 Peripheral/Venous Blood Culture - Preliminary NO GROWTH AFTER 48 HOURS 11/11/21 11:18 Peripheral/Venous Blood Culture - Preliminary NO GROWTH AFTER 48 HOURS Active Medications - Current Medications Current Medications: Generic Name Dose Route Start Last Admin Trade Name Freq PRN Reason Stop Dose Admin Alprazolam 0.25 mg 11/11/21 14:40 11/13/21 15:19 Alprazolam 0.25 Mg Tab PO 0.25 mg Q8H PRN Administration Anxiety Bisacodyl 10 mg 11/11/21 14:40 Bisacodyl 10 Mg Rect Supp [place] QDAY PRN Constipation unrelieved by MOM Folic Acid 1 mg 11/12/21 10:00 11/13/21 13:29 Folic Acid 1 Mg Tab PO Not Given QDAY ARYA Hydromorphone HCl 1 mg 11/12/21 15:08 11/13/21 17:20 Hydromorphone 1 Mg/1 Ml Inj IV 1 mg Q8H PRN Administration Pain , Severe (7-10) Ceftriaxone Sodium 2 gm in 100 mls @ 200 mls/hr 11/12/21 10:00 11/13/21 17:28 Rocephin/Ns 2 Gm/100 Ml IV 11/15/21 10:29 Infused Q24HR ARYA Infusion Azithromycin 500 mg in 250 mls @ 250 mls/hr 11/13/21 18:00 Zithromax/Ns IV Q24H ARYA Magnesium Hydroxide 30 ml 11/11/21 14:37 Magnesium Hydroxide (Mom) Oral Liqd Udc PO Q4H PRN Constipation Multivitamins 1 each 11/11/21 15:00 11/13/21 13:29 Multivitamins ,Therapeutic Tab PO Not Given QDAY ARYA Ondansetron HCl 4 mg 11/11/21 14:40 Ondansetron 4 Mg/2 Ml Inj IV Q8H PRN Nausea And Vomiting Senna 17.2 mg 11/11/21 22:00 11/12/21 23:26 Sennosides 8.6 Mg Tab PO Not Given QHS ARYA
[2021-11-13] MEDS ORDERED: METOPROLOL TARTRATE 50 MG TAB PO ONE (17:47)
[2021-11-13] MEDS ORDERED: AZITHROMYCIN/NS 500 MG/250 ML 500 MG/250 ML BAG IV SCH (18:00)
[2021-11-13] MEDS: METOPROLOL TARTRATE 25 MG TAB PO SCH (22:00)
[2021-11-14] MEDS: HYDROmorphone 1 MG/1 ML INJ IV PRN ×4 (00:15→23:05)
[2021-11-14] MEDS: SENNOSIDES 8.6 MG TAB PO SCH ×2 (01:08→22:59)
[2021-11-14] MEDS: cefTRIAXone/NS 2 GM/100 ML 2 GM/100 ML BAG IV SCH (12:34)
[2021-11-14] MEDS: FOLIC ACID 1 MG TAB PO SCH (12:36)
[2021-11-14] MEDS: METOPROLOL TARTRATE 25 MG TAB PO SCH ×2 (12:36→22:59)
[2021-11-14] MEDS: MULTIVITAMINS ,THERAPEUTIC TAB PO SCH (12:37)
[2021-11-14] MEDS ORDERED: ACETAMINOPHEN 325 MG TAB PO PRN (13:29)
[2021-11-14] MEDS: AZITHROMYCIN 250 MG TAB PO SCH (16:26)
[2021-11-14] MEDS ORDERED: IBUPROFEN 400 MG TAB PO PRN (17:02)
--- NOTE | 2021-11-14 19:57 | Progress Note ---
Assessment and Plan Assessment and plan: --COVID-19 positive 11/13/2021 Elevated inflammatory markers O2 evaluation, Continue dexamethasone Do not need remdesivir Patient is saturating well on room air -- History of COVID-19 pneumonia prior to admission --Sepsis due to multifocal bilateral pneumonia; Empiric antibiotics Rocephin and Zithromax Check procalcitonin levels ID consultation --Sickle cell disease with painful crisis; IV fluids, pain medication, oxygen titrate O2 sats to more than 90% Thiamine folic acid, Supportive care --Sickle cell anemia; hemoglobin 7.2-7.7 Closely monitor H&H, transfuse as needed --Elevated D-dimers :CTA negative for PE lower extremity venous Doppler negative for DVT --Leukocytosis; worsening Possible UTI, empiric antibiotics Closely monitor --Obesity; BMI 30.0 Advised diet modification, exercise as tolerated and weight reduction When medically stable --DVT prophylaxis; Subcu Lovenox Closely monitor patient and adjust the management as needed Plan of care reviewed with the patient and his nurse Law enforcement officers at the bedside Continue current management Home O2 evaluation Possible discharge in 1 to 2 days if stable 11/13/2021; history of COVID-19, elevated inflammatory markers Patient also has multifocal pneumonia and UTI, on IV Zithromax and Rocephin Follow cultures, worsening leukocytosis, consider ID evaluation Continue current management 11/14/2021; Rich PCR test positive on 11/13/2021 Patient is saturating on room air Persistent fever, leukocytosis, ID consult History Interval history: I have seen and examined the patient at the bedside Patient's chart and medications reviewed Isolation precautions and PPE protocols followed per CDC guidelines No new events reported by the nursing Patient has no new complaints Hospitalist Physical - Constitutional Vitals: Temp Pulse Resp BP Pulse Ox 97.9 F 102 H 24 138/72 98 11/14/21 17:36 11/14/21 17:36 11/14/21 17:36 11/14/21 17:36 11/14/21 17:36 General appearance: Present: no acute distress, well-nourished - EENT Eyes: Present: PERRL, EOM intact - Neck Neck: Present: supple, normal ROM - Respiratory Respiratory effort: normal Respiratory: bilateral: diminished, negative: rales, rhonchi, wheezing - Cardiovascular Rhythm: regular Heart Sounds: Present: S1 & S2 - Extremities Extremities: no ischemia, No edema - Abdominal General gastrointestinal: soft, non-tender, non-distended, normal bowel sounds - Integumentary Integumentary: Present: clear, warm - Psychiatric Psychiatric: appropriate mood/affect, cooperative - Neurologic Neurologic: CNII-XII intact, moves all extremities HEART Score - HEART Score Troponin: Troponin T < 0.010 ng/mL (0.00-0.029) 11/11/21 08:55 Results - Labs CBC & Chem 7: 11/13/21 11:37 11/15/21 10:42 Labs: Laboratory Last Values WBC 27.6 K/mm3 (4.5-11.0) H 11/13/21 11:37 RBC 2.26 M/mm3 (3.65-5.03) L 11/13/21 11:37 Hgb 7.7 gm/dl (11.8-15.2) L 11/13/21 11:37 Hct 23.2 % (35.5-45.6) L 11/13/21 11:37 MCV 103 fl (84-94) H 11/13/21 11:37 MCH 34 pg (28-32) H 11/13/21 11:37 MCHC 33 % (32-34) 11/13/21 11:37 RDW 20.5 % (13.2-15.2) H 11/13/21 11:37 Plt Count 200 K/mm3 (140-440) 11/13/21 11:37 Add Manual Diff Complete 11/13/21 11:37 Total Counted 100 11/13/21 11:37 Seg Neuts % (Manual) 77.0 % (40.0-70.0) H 11/13/21 11:37 Band Neutrophils % 2.0 % 11/13/21 11:37 Lymphocytes % (Manual) 17.0 % (13.4-35.0) 11/13/21 11:37 Reactive Lymphs % (Man) 1.0 % 11/13/21 11:37 Monocytes % (Manual) 2.0 % (0.0-7.3) 11/13/21 11:37 Eosinophils % (Manual) 0 % (0.0-4.3) 11/13/21 11:37 Basophils % (Manual) 0 % (0.0-1.8) 11/13/21 11:37 Metamyelocytes % 0 % 11/13/21 11:37 Myelocytes % 1.0 % 11/13/21 11:37 Promyelocytes % 0 % 11/13/21 11:37 Blast Cells % 0 % 11/13/21 11:37 Nucleated RBC % 19.0 % (0.0-0.9) H 11/13/21 11:37 Seg Neutrophils # Man 21.3 K/mm3 (1.8-7.7) H 11/13/21 11:37 Band Neutrophils # 0.6 K/mm3 11/13/21 11:37 Lymphocytes # (Manual) 4.7 K/mm3 (1.2-5.4) 11/13/21 11:37 Abs React Lymphs (Man) 0.3 K/mm3 11/13/21 11:37 Monocytes # (Manual) 0.6 K/mm3 (0.0-0.8) 11/13/21 11:37 Eosinophils # (Manual) 0.0 K/mm3 (0.0-0.4) 11/13/21 11:37 Basophils # (Manual) 0.0 K/mm3 (0.0-0.1) 11/13/21 11:37 Metamyelocytes # 0.0 K/mm3 11/13/21 11:37 Myelocytes # 0.3 K/mm3 11/13/21 11:37 Promyelocytes # 0.0 K/mm3 11/13/21 11:37 Blast Cells # 0.0 K/mm3 11/13/21 11:37 WBC Morphology Not Reportable 11/13/21 11:37 Hypersegmented Neuts Not Reportable 11/13/21 11:37 Hyposegmented Neuts Not Reportable 11/13/21 11:37 Hypogranular Neuts Not Reportable 11/13/21 11:37 Smudge Cells Not Reportable 11/13/21 11:37 Toxic Granulation Not Reportable 11/13/21 11:37 Toxic Vacuolation Not Reportable 11/13/21 11:37 Dohle Bodies Not Reportable 11/13/21 11:37 Pelger-Huet Anomaly Not Reportable 11/13/21 11:37 Aric Rods Not Reportable 11/13/21 11:37 Platelet Estimate Consistent w auto 11/13/21 11:37 Clumped Platelets Not Reportable 11/13/21 11:37 Plt Clumps, EDTA Not Reportable 11/13/21 11:37 Large Platelets Not Reportable 11/13/21 11:37 Giant Platelets Not Reportable 11/13/21 11:37 Platelet Satelliting Not Reportable 11/13/21 11:37 Plt Morphology Comment Not Reportable 11/13/21 11:37 RBC Morphology Not Reportable 11/13/21 11:37 Dimorphic RBCs Not Reportable 11/13/21 11:37 Polychromasia 1+ 11/13/21 11:37 Hypochromasia Not Reportable 11/13/21 11:37 Poikilocytosis 2+ 11/13/21 11:37 Anisocytosis 2+ 11/13/21 11:37 Microcytosis Not Reportable 11/13/21 11:37 Macrocytosis Not Reportable 11/13/21 11:37 Spherocytes 2+ 11/13/21 11:37 Pappenheimer Bodies Not Reportable 11/13/21 11:37 Sickle Cells Few 11/13/21 11:37 Target Cells 1+ 11/13/21 11:37 Tear Drop Cells Not Reportable 11/13/21 11:37 Ovalocytes Not Reportable 11/13/21 11:37 Helmet Cells Not Reportable 11/13/21 11:37 [place] Bodies Not Reportable 11/13/21 11:37 [place] Rings Not Reportable 11/13/21 11:37 [place] Cells Not Reportable 11/13/21 11:37 Bite Cells Not Reportable 11/13/21 11:37 Crenated Cell Not Reportable 11/13/21 11:37 Elliptocytes Not Reportable 11/13/21 11:37 Acanthocytes (Spur) Not Reportable 11/13/21 11:37 Rouleaux Not Reportable 11/13/21 11:37 Hemoglobin C Crystals Not Reportable 11/13/21 11:37 Schistocytes Not Reportable 11/13/21 11:37 Malaria parasites Not Reportable 11/13/21 11:37 Percent Retic 8.16 % (0.78-2.58) H 11/11/21 08:55 Joseph Bodies Not Reportable 11/13/21 11:37 Hem Pathologist Commnt No 11/13/21 11:37 PT 13.6 Sec. (12.2-14.9) 11/11/21 08:55 INR 0.94 (0.87-1.13) 11/11/21 08:55 D-Dimer 4072.35 ng/mlDDU (0-234) H 11/14/21 05:28 Sodium 136 mmol/L (137-145) L 11/13/21 11:37 Potassium 3.8 mmol/L (3.6-5.0) 11/13/21 11:37 Chloride 96.7 mmol/L (98-107) L 11/13/21 11:37 Carbon Dioxide 26 mmol/L (22-30) 11/13/21 11:37 Anion Gap 17 mmol/L 11/13/21 11:37 BUN 7 mg/dL (9-20) L 11/13/21 11:37 Creatinine 0.4 mg/dL (0.8-1.3) L 11/13/21 11:37 Estimated GFR > 60 ml/min 11/13/21 11:37 BUN/Creatinine Ratio 18 % 11/13/21 11:37 Glucose 103 mg/dL (75-100) H 11/13/21 11:37 Lactic Acid 0.90 mmol/L (0.7-2.0) 11/11/21 11:18 Calcium 9.1 mg/dL (8.4-10.2) 11/13/21 11:37 Magnesium 2.10 mg/dL (1.7-2.3) 11/13/21 11:37 Ferritin > 2000.0 ng/mL (30.0-300.0) H 11/14/21 05:28 Total Bilirubin 5.40 mg/dL (0.1-1.2) H 11/11/21 08:55 AST 42 units/L (5-40) H 11/11/21 08:55 ALT 34 units/L (7-56) 11/11/21 08:55 Alkaline Phosphatase 108 units/L (35-129) 11/11/21 08:55 Lactate Dehydrogenase 1740 units/L (91-180) H 11/14/21 05:28 Total Creatine Kinase 70 units/L (55-170) 11/11/21 08:55 Troponin T < 0.010 ng/mL (0.00-0.029) 11/11/21 08:55 C-Reactive Protein 30.00 mg/dL (0.00-1.30) H 11/14/21 05:28 Total Protein 7.3 g/dL (6.3-8.2) 11/11/21 08:55 Albumin 4.7 g/dL (3.9-5) 11/11/21 08:55 Albumin/Globulin Ratio 1.8 % 11/11/21 08:55 Procalcitonin 0.16 ng/mL (<0.15) 11/11/21 11:18 Coronavirus (PCR) Positive (Negative) A 11/13/21 Unknown Microbiology: Microbiology 11/11/21 11:18 Peripheral/Venous Blood Culture - Preliminary NO GROWTH AFTER 72 HOURS 11/11/21 11:18 Peripheral/Venous Blood Culture - Preliminary NO GROWTH AFTER 72 HOURS Bennett/IV: Voiding Method Urinal Active Medications - Current Medications Current Medications: Generic Name Dose Route Start Last Admin Trade Name Freq PRN Reason Stop Dose Admin Azithromycin 500 mg 11/14/21 12:00 11/14/21 16:26 Azithromycin 250 Mg Tab PO 11/17/21 09:59 500 mg QDAY ARYA Administration Bisacodyl 10 mg 11/11/21 14:40 Bisacodyl 10 Mg Rect Supp ID QDAY PRN Constipation unrelieved by MOM Folic Acid 1 mg 11/12/21 10:00 11/14/21 12:36 Folic Acid 1 Mg Tab PO 1 mg QDAY ARYA Administration Hydromorphone HCl 1 mg 11/12/21 15:08 11/14/21 16:26 Hydromorphone 1 Mg/1 Ml Inj IV 1 mg Q8H PRN Administration Pain , Severe (7-10) Ceftriaxone Sodium 2 gm in 100 mls @ 200 mls/hr 11/12/21 10:00 11/14/21 12:34 Rocephin/Ns 2 Gm/100 Ml IV 11/15/21 10:29 200 mls/hr Q24HR ARYA Administration Ibuprofen 400 mg 11/14/21 17:02 Ibuprofen 400 Mg Tab PO Q6H PRN Pain, Mild (1-3) Magnesium Hydroxide 30 ml 11/11/21 14:37 Magnesium Hydroxide (Mom) Oral Liqd Udc PO Q4H PRN Constipation Metoprolol Tartrate 12.5 mg 11/13/21 22:00 11/14/21 12:36 Metoprolol Tartrate 25 Mg Tab PO 12.5 mg BID ARYA Administration Multivitamins 1 each 11/11/21 15:00 11/14/21 12:37 Multivitamins ,Therapeutic Tab PO 1 each QDAY ARYA Administration Ondansetron HCl 4 mg 11/11/21 14:40 Ondansetron 4 Mg/2 Ml Inj IV Q8H PRN Nausea And Vomiting Senna 17.2 mg 11/11/21 22:00 11/14/21 01:08 Sennosides 8.6 Mg Tab PO Not Given QHS ARYA
[2021-11-15] MEDS: guaiFENesin DM 200/20 MG ORAL LIQD 10 ML PO PRN ×2 (03:06→22:17)
[2021-11-15] MEDS: MULTIVITAMINS ,THERAPEUTIC TAB PO SCH (09:38)
[2021-11-15] MEDS: cefTRIAXone/NS 2 GM/100 ML 2 GM/100 ML BAG IV SCH (09:38)
[2021-11-15] MEDS: HYDROmorphone 1 MG/1 ML INJ IV PRN ×2 (09:39→16:48)
[2021-11-15] MEDS: FOLIC ACID 1 MG TAB PO SCH (09:39)
[2021-11-15] MEDS: AZITHROMYCIN 250 MG TAB PO SCH (09:39)
[2021-11-15] MEDS: METOPROLOL TARTRATE 25 MG TAB PO SCH ×2 (09:40→22:16)
--- NOTE | 2021-11-15 10:07 | Progress Note ---
Assessment and Plan Assessment and plan: --COVID-19 positive 11/13/2021 Elevated inflammatory markers Patient is hypoxia on 15 L of Ventimask Wean as tolerated titrate Start dexamethasone IV for 10 days Remdesivir per protocol for 5 days ID consulted -- Acute hypoxic respiratory failure Requiring 15 L/50%/96 O2 sat on Ventimask Due to COVID-19 pneumonia -- History of COVID-19 pneumonia prior to admission --Sepsis due to multifocal bilateral pneumonia; Empiric antibiotics Rocephin and Zithromax minimal elevation of procalcitonin defer to ID recommendation regarding antibiotics --Sickle cell disease with painful crisis; IV fluids, pain medication, oxygen titrate O2 sats to more than 90% Thiamine folic acid, Supportive care --Sickle cell anemia; hemoglobin 7.2-7.7 Closely monitor H&H, transfuse as needed --Elevated D-dimers :CTA negative for PE lower extremity venous Doppler negative for DVT --Leukocytosis; worsening Possible UTI, empiric antibiotics Closely monitor --Obesity; BMI 30.0 Advised diet modification, exercise as tolerated and weight reduction When medically stable --DVT prophylaxis; Subcu Lovenox Closely monitor patient and adjust the management as needed Plan of care reviewed with the patient and his nurse I also discussed with the law enforcement officers, answered their questions Continue current management Home O2 evaluation Possible discharge in 1 to 2 days if stable 11/13/2021; history of COVID-19, elevated inflammatory markers Patient also has multifocal pneumonia and UTI, on IV Zithromax and Rocephin Follow cultures, worsening leukocytosis, consider ID evaluation Continue current management 11/14/2021; Rich PCR test positive on 11/13/2021 Patient is saturating on room air Persistent fever, leukocytosis, ID consult 11/15/2021; ID evaluation noted and appreciated Closely monitor the patient and adjust the management as needed Home oxygen evaluation prior to discharge History Interval history: I have seen and examined the patient at the bedside Patient's chart and medications reviewed Isolation precautions and PPE protocols observed per CDC guidelines Patient complains of generalized weakness Also generalized body pains On 15 L of oxygen Hospitalist Physical - Constitutional Vitals: Temp Pulse Resp BP Pulse Ox 98.0 F 70 20 130/65 100 11/15/21 04:45 11/15/21 09:40 11/15/21 09:39 11/15/21 09:40 11/15/21 04:45 General appearance: Present: no acute distress, well-nourished - EENT Eyes: Present: PERRL, EOM intact - Neck Neck: Present: supple, normal ROM - Respiratory Respiratory effort: normal Respiratory: bilateral: diminished, negative: rales, rhonchi, wheezing - Extremities Extremities: no ischemia, pulses intact - Abdominal General gastrointestinal: soft, non-tender, non-distended, normal bowel sounds - Integumentary Integumentary: Present: clear, warm - Psychiatric Psychiatric: appropriate mood/affect, cooperative - Neurologic Neurologic: CNII-XII intact, moves all extremities HEART Score - HEART Score Troponin: Troponin T < 0.010 ng/mL (0.00-0.029) 11/11/21 08:55 Results - Labs CBC & Chem 7: 11/13/21 11:37 11/15/21 10:42 Labs: Laboratory Last Values WBC 27.6 K/mm3 (4.5-11.0) H 11/13/21 11:37 RBC 2.26 M/mm3 (3.65-5.03) L 11/13/21 11:37 Hgb 7.7 gm/dl (11.8-15.2) L 11/13/21 11:37 Hct 23.2 % (35.5-45.6) L 11/13/21 11:37 MCV 103 fl (84-94) H 11/13/21 11:37 MCH 34 pg (28-32) H 11/13/21 11:37 MCHC 33 % (32-34) 11/13/21 11:37 RDW 20.5 % (13.2-15.2) H 11/13/21 11:37 Plt Count 200 K/mm3 (140-440) 11/13/21 11:37 Add Manual Diff Complete 11/13/21 11:37 Total Counted 100 11/13/21 11:37 Seg Neuts % (Manual) 77.0 % (40.0-70.0) H 11/13/21 11:37 Band Neutrophils % 2.0 % 11/13/21 11:37 Lymphocytes % (Manual) 17.0 % (13.4-35.0) 11/13/21 11:37 Reactive Lymphs % (Man) 1.0 % 11/13/21 11:37 Monocytes % (Manual) 2.0 % (0.0-7.3) 11/13/21 11:37 Eosinophils % (Manual) 0 % (0.0-4.3) 11/13/21 11:37 Basophils % (Manual) 0 % (0.0-1.8) 11/13/21 11:37 Metamyelocytes % 0 % 11/13/21 11:37 Myelocytes % 1.0 % 11/13/21 11:37 Promyelocytes % 0 % 11/13/21 11:37 Blast Cells % 0 % 11/13/21 11:37 Nucleated RBC % 19.0 % (0.0-0.9) H 11/13/21 11:37 Seg Neutrophils # Man 21.3 K/mm3 (1.8-7.7) H 11/13/21 11:37 Band Neutrophils # 0.6 K/mm3 11/13/21 11:37 Lymphocytes # (Manual) 4.7 K/mm3 (1.2-5.4) 11/13/21 11:37 Abs React Lymphs (Man) 0.3 K/mm3 11/13/21 11:37 Monocytes # (Manual) 0.6 K/mm3 (0.0-0.8) 11/13/21 11:37 Eosinophils # (Manual) 0.0 K/mm3 (0.0-0.4) 11/13/21 11:37 Basophils # (Manual) 0.0 K/mm3 (0.0-0.1) 11/13/21 11:37 Metamyelocytes # 0.0 K/mm3 11/13/21 11:37 Myelocytes # 0.3 K/mm3 11/13/21 11:37 Promyelocytes # 0.0 K/mm3 11/13/21 11:37 Blast Cells # 0.0 K/mm3 11/13/21 11:37 WBC Morphology Not Reportable 11/13/21 11:37 Hypersegmented Neuts Not Reportable 11/13/21 11:37 Hyposegmented Neuts Not Reportable 11/13/21 11:37 Hypogranular Neuts Not Reportable 11/13/21 11:37 Smudge Cells Not Reportable 11/13/21 11:37 Toxic Granulation Not Reportable 11/13/21 11:37 Toxic Vacuolation Not Reportable 11/13/21 11:37 Dohle Bodies Not Reportable 11/13/21 11:37 Pelger-Huet Anomaly Not Reportable 11/13/21 11:37 Aric Rods Not Reportable 11/13/21 11:37 Platelet Estimate Consistent w auto 11/13/21 11:37 Clumped Platelets Not Reportable 11/13/21 11:37 Plt Clumps, EDTA Not Reportable 11/13/21 11:37 Large Platelets Not Reportable 11/13/21 11:37 Giant Platelets Not Reportable 11/13/21 11:37 Platelet Satelliting Not Reportable 11/13/21 11:37 Plt Morphology Comment Not Reportable 11/13/21 11:37 RBC Morphology Not Reportable 11/13/21 11:37 Dimorphic RBCs Not Reportable 11/13/21 11:37 Polychromasia 1+ 11/13/21 11:37 Hypochromasia Not Reportable 11/13/21 11:37 Poikilocytosis 2+ 11/13/21 11:37 Anisocytosis 2+ 11/13/21 11:37 Microcytosis Not Reportable 11/13/21 11:37 Macrocytosis Not Reportable 11/13/21 11:37 Spherocytes 2+ 11/13/21 11:37 Pappenheimer Bodies Not Reportable 11/13/21 11:37 Sickle Cells Few 11/13/21 11:37 Target Cells 1+ 11/13/21 11:37 Tear Drop Cells Not Reportable 11/13/21 11:37 Ovalocytes Not Reportable 11/13/21 11:37 Helmet Cells Not Reportable 11/13/21 11:37 [place] Bodies Not Reportable 11/13/21 11:37 [place] Rings Not Reportable 11/13/21 11:37 [place] Cells Not Reportable 11/13/21 11:37 Bite Cells Not Reportable 11/13/21 11:37 Crenated Cell Not Reportable 11/13/21 11:37 Elliptocytes Not Reportable 11/13/21 11:37 Acanthocytes (Spur) Not Reportable 11/13/21 11:37 Rouleaux Not Reportable 11/13/21 11:37 Hemoglobin C Crystals Not Reportable 11/13/21 11:37 Schistocytes Not Reportable 11/13/21 11:37 Malaria parasites Not Reportable 11/13/21 11:37 Percent Retic 8.16 % (0.78-2.58) H 11/11/21 08:55 Joseph Bodies Not Reportable 11/13/21 11:37 Hem Pathologist Commnt No 11/13/21 11:37 PT 13.6 Sec. (12.2-14.9) 11/11/21 08:55 INR 0.94 (0.87-1.13) 11/11/21 08:55 D-Dimer 4072.35 ng/mlDDU (0-234) H 11/14/21 05:28 Sodium 136 mmol/L (137-145) L 11/13/21 11:37 Potassium 3.8 mmol/L (3.6-5.0) 11/13/21 11:37 Chloride 96.7 mmol/L (98-107) L 11/13/21 11:37 Carbon Dioxide 26 mmol/L (22-30) 11/13/21 11:37 Anion Gap 17 mmol/L 11/13/21 11:37 BUN 7 mg/dL (9-20) L 11/13/21 11:37 Creatinine 0.4 mg/dL (0.8-1.3) L 11/13/21 11:37 Estimated GFR > 60 ml/min 11/13/21 11:37 BUN/Creatinine Ratio 18 % 11/13/21 11:37 Glucose 103 mg/dL (75-100) H 11/13/21 11:37 Lactic Acid 0.90 mmol/L (0.7-2.0) 11/11/21 11:18 Calcium 9.1 mg/dL (8.4-10.2) 11/13/21 11:37 Magnesium 2.10 mg/dL (1.7-2.3) 11/13/21 11:37 Ferritin > 2000.0 ng/mL (30.0-300.0) H 11/14/21 05:28 Total Bilirubin 5.40 mg/dL (0.1-1.2) H 11/11/21 08:55 AST 42 units/L (5-40) H 11/11/21 08:55 ALT 34 units/L (7-56) 11/11/21 08:55 Alkaline Phosphatase 108 units/L (35-129) 11/11/21 08:55 Lactate Dehydrogenase 1740 units/L (91-180) H 11/14/21 05:28 Total Creatine Kinase 70 units/L (55-170) 11/11/21 08:55 Troponin T < 0.010 ng/mL (0.00-0.029) 11/11/21 08:55 C-Reactive Protein 30.00 mg/dL (0.00-1.30) H 11/14/21 05:28 Total Protein 7.3 g/dL (6.3-8.2) 11/11/21 08:55 Albumin 4.7 g/dL (3.9-5) 11/11/21 08:55 Albumin/Globulin Ratio 1.8 % 11/11/21 08:55 Procalcitonin 0.16 ng/mL (<0.15) 11/11/21 11:18 Coronavirus (PCR) Positive (Negative) A 11/13/21 Unknown Microbiology: Microbiology 11/11/21 11:18 Peripheral/Venous Blood Culture - Preliminary NO GROWTH AFTER 72 HOURS 11/11/21 11:18 Peripheral/Venous Blood Culture - Preliminary NO GROWTH AFTER 72 HOURS Bennett/IV: Voiding Method Urinal Active Medications - Current Medications Current Medications: Generic Name Dose Route Start Last Admin Trade Name Freq PRN Reason Stop Dose Admin Azithromycin 500 mg 11/14/21 12:00 11/15/21 09:39 Azithromycin 250 Mg Tab PO 11/17/21 09:59 500 mg QDAY ARYA Administration Bisacodyl 10 mg 11/11/21 14:40 Bisacodyl 10 Mg Rect Supp KS QDAY PRN Constipation unrelieved by MOM Folic Acid 1 mg 11/12/21 10:00 11/15/21 09:39 Folic Acid 1 Mg Tab PO 1 mg QDAY ARYA Administration Guaifenesin 10 ml 11/15/21 02:40 11/15/21 03:06 Guaifenesin Dm 200/20 Mg Oral Liqd 10 Ml PO 10 ml Q6H PRN Administration Cough Hydromorphone HCl 1 mg 11/12/21 15:08 11/15/21 09:39 Hydromorphone 1 Mg/1 Ml Inj IV 1 mg Q8H PRN Administration Pain , Severe (7-10) Ceftriaxone Sodium 2 gm in 100 mls @ 200 mls/hr 11/12/21 10:00 11/15/21 09:38 Rocephin/Ns 2 Gm/100 Ml IV 11/15/21 10:29 200 mls/hr Q24HR ARYA Administration Ibuprofen 400 mg 11/14/21 17:02 11/14/21 22:59 Ibuprofen 400 Mg Tab PO 400 mg Q6H PRN Administration Pain, Mild (1-3) Magnesium Hydroxide 30 ml 11/11/21 14:37 11/15/21 03:11 Magnesium Hydroxide (Mom) Oral Liqd Udc PO 30 ml Q4H PRN Administration Constipation Metoprolol Tartrate 12.5 mg 11/13/21 22:00 11/15/21 09:40 Metoprolol Tartrate 25 Mg Tab PO 12.5 mg BID ARYA Administration Multivitamins 1 each 11/11/21 15:00 11/15/21 09:38 Multivitamins ,Therapeutic Tab PO 1 each QDAY ARYA Administration Ondansetron HCl 4 mg 11/11/21 14:40 Ondansetron 4 Mg/2 Ml Inj IV Q8H PRN Nausea And Vomiting Senna 17.2 mg 11/11/21 22:00 11/14/21 22:59 Sennosides 8.6 Mg Tab PO 17.2 mg QHS ARYA Administration
[2021-11-15 11:23] LABS: Alanine Aminotransferase 26 units/L (7-56); Albumin 3.3 g/dL (3.9-5); Blood Urea Nitrogen 12 mg/dL (9-20); Calcium 8.7 mg/dL (8.4-10.2); Hemolysis Index 46
[2021-11-15 11:24] LABS: BUN/Creatinine Ratio 40
[2021-11-15] MEDS: dexAMETHasone 4 MG/ML VIAL IV SCH (12:46)
[2021-11-15] MEDS: SODIUM CHLORIDE 0.9% 50 ML IVPB IV SCH (12:46)
[2021-11-15] MEDS ORDERED: REMDESIVIR 200 MG in SODIUM CHLORIDE 0.9% 250ML 250 ML IV ONE (13:00)
--- NOTE | 2021-11-15 15:23 | Consultation ---
History of Present Illness - Reason for Consult Consult date: 11/15/21 COVID, sickle crisis Requesting physician: MALIA SOLOMON - History of Present Illness The patient is a 26-year-old patient with sickle cell disease, tested positive for COVID-19 as an outpatient, unvaccinated was admitted with generalized pain which he attributed to sickle cell crisis. Upon evaluation in the ER, chest x- ray showed bilateral pneumonia, labs revealed leukocytosis, total bilirubin 5.4, AST 42, LDH 443, procalcitonin 0.16, ferritin 2237, CRP 1.2. CTA negative for pulmonary embolism, showed moderate bilateral multifocal pneumonia. Intermittent fevers. On Venturi mask Review of Systems: reviewed in the chart, unable to obtain, minimize risk of transmission Past History Past Medical History: other (Sickle cell disease) Past Surgical History: No surgical history Social history: denies: smoking, alcohol abuse Family history: no significant family history Medications and Allergies Allergies Allergy/AdvReac Type Severity Reaction Status Date / Time acetaminophen [From Tylenol] Allergy Shortness Verified 11/14/21 17:17 of Breath codeine Allergy Unknown Verified 11/11/21 09:02 Home Medications Medication Instructions Recorded Confirmed Last Taken Type No Known Home Medications [No 11/15/21 11/15/21 Unknown History Reported Home Medications] Active Meds: Active Medications Azithromycin (Azithromycin 250 Mg Tab) 500 mg PO QDAY [facility] Stop: 11/17/21 09:59 Last Admin: 11/15/21 09:39 Dose: 500 mg Bisacodyl (Bisacodyl 10 Mg Rect Supp) 10 mg LA QDAY PRN PRN Reason: Constipation unrelieved by MOM Dexamethasone (Dexamethasone 4 Mg/Ml Vial) 6 mg IV DAILY [facility] Stop: 11/24/21 10:01 Last Admin: 11/15/21 12:46 Dose: 6 mg Folic Acid (Folic Acid 1 Mg Tab) 1 mg PO QDAY ARYA Last Admin: 11/15/21 09:39 Dose: 1 mg Guaifenesin (Guaifenesin Dm 200/20 Mg Oral Liqd 10 Ml) 10 ml PO Q6H PRN PRN Reason: Cough Last Admin: 11/15/21 03:06 Dose: 10 ml Hydromorphone HCl (Hydromorphone 1 Mg/1 Ml Inj) 1 mg IV Q8H PRN PRN Reason: Pain , Severe (7-10) Last Admin: 11/15/21 09:39 Dose: 1 mg REMDESIVIR 100 mg/ Sodium (Chloride) 250 mls @ 500 mls/hr IV Q24HR@2100 [facility] Stop: 11/19/21 21:29 Magnesium Hydroxide (Magnesium Hydroxide (Mom) Oral Liqd Udc) 30 ml PO Q4H PRN PRN Reason: Constipation Last Admin: 11/15/21 03:11 Dose: 30 ml Metoprolol Tartrate (Metoprolol Tartrate 25 Mg Tab) 12.5 mg PO BID [facility] Last Admin: 11/15/21 09:40 Dose: 12.5 mg Multivitamins (Multivitamins ,Therapeutic Tab) 1 each PO QDAY [facility] Last Admin: 11/15/21 09:38 Dose: 1 each Ondansetron HCl (Ondansetron 4 Mg/2 Ml Inj) 4 mg IV Q8H PRN PRN Reason: Nausea And Vomiting Senna (Sennosides 8.6 Mg Tab) 17.2 mg PO QHS [facility] Last Admin: 11/14/21 22:59 Dose: 17.2 mg Sodium Chloride (Sodium Chloride 0.9% 50 Ml Ivpb) 50 ml IV Q24HR@2100 [facility] Stop: 11/19/21 21:01 Last Admin: 11/15/21 12:46 Dose: 50 ml Physical Examination - Physical Exam Narrative exam: Physical Exam (reviewed in chart to minimize risk of transmission) Constitutional: deferred Head, Ears, Nose: deferred Eyes: deferred Neck: deferred Oral: deferred Cardiovascular: deferred Respiratory: deferred GI: deferred Musculoskeletal: deferred Skin: deferred Hem/Lymphatic: deferred Psych: deferred Neurological: deferred - Constitutional Vitals: Vital Signs Temp Pulse Resp BP Pulse Ox 99.7 F H 104 H 24 118/67 100 11/15/21 13:01 11/15/21 13:01 11/15/21 13:01 11/15/21 13:01 11/15/21 13:01 Temperature -Last 24 Hours Temperature 99.7 F Temperature 98.0 F Temperature 100.8 F Temperature 97.9 F Results - Labs CBC & Chem 7: 11/13/21 11:37 11/15/21 10:42 Labs: Abnormal lab results 11/15/21 Range/Units 10:42 Sodium 136 L (137-145) mmol/L Chloride 96.5 L (98-107) mmol/L Creatinine 0.3 L (0.8-1.3) mg/dL Glucose 113 H (75-100) mg/dL Total Bilirubin 7.40 H (0.1-1.2) mg/dL AST 43 H (5-40) units/L Alkaline Phosphatase 382 H (35-129) units/L Albumin 3.3 L (3.9-5) g/dL - Imaging and Cardiology Chest x-ray: report reviewed, image reviewed (no significant infiltrate seen) CT scan - chest: report reviewed, image reviewed (b/l pna) Assessment and Plan Cultures: SARS CoV2 PCR: Positive 11/11/2021 blood culture: No growth A/P: 26-year-old patient with sickle cell disease with: #Bilateral pneumonia: Secondary to COVID-19. labs revealed leukocytosis, total bilirubin 5.4, AST 42, LDH 443, procalcitonin 0.16, ferritin 2237, CRP 1.2. CTA negative for pulmonary embolism, showed moderate bilateral multifocal pneumonia. #Acute hypoxic respiratory failure: Secondary to above #Sickle cell crisis, elevated bilirubin #Leukocytosis: Likely reactive to COVID-19, steroids, sickle cell crisis Recs: -continue IV/PO Dexamethasone x 10 days -continue IV remdesivir x 5 days -Not a candidate for Actemra -prophylactic anticoagulation based on d-dimer per hospital protocol -Completed empiric ceftriaxone course, procal is low -Sickle crisis management per primary Gabriela Magaña MD, FACP, [facility] ([facility] O: [phone] F: [phone]
[2021-11-15] MEDS: SENNOSIDES 8.6 MG TAB PO SCH (22:16)
[2021-11-16] MEDS: HYDROmorphone 1 MG/1 ML INJ IV PRN ×3 (01:46→18:15)
--- NOTE | 2021-11-16 09:12 | Progress Note ---
Assessment and Plan Assessment and plan: -- Low-grade fever T-max last 24 hours 100.7 Afebrile this morning, due to COVID-19 infection Patient is on 3 L nasal cannula oxygen today[significantly improved from 15 L Ventimask yesterday] Slowly wean as tolerated, home O2 evaluation prior to discharge --COVID-19 positive 11/13/2021 Elevated inflammatory markers Patient is hypoxia on 15 L of Ventimask Wean as tolerated titrate Start dexamethasone IV for 10 days Remdesivir per protocol for 5 days ID consulted -- Acute hypoxic respiratory failure Requiring 15 L/50%/96 O2 sat on Ventimask Due to COVID-19 pneumonia -- History of COVID-19 pneumonia prior to admission --Sepsis due to multifocal bilateral pneumonia; Empiric antibiotics Rocephin and Zithromax minimal elevation of procalcitonin defer to ID recommendation regarding antibiotics --Sickle cell disease with painful crisis; IV fluids, pain medication, oxygen titrate O2 sats to more than 90% Thiamine folic acid, Supportive care --Sickle cell anemia; hemoglobin 7.2-7.7 Closely monitor H&H, transfuse as needed --Elevated D-dimers :CTA negative for PE lower extremity venous Doppler negative for DVT --Leukocytosis; worsening Possible UTI, empiric antibiotics Closely monitor --Obesity; BMI 30.0 Advised diet modification, exercise as tolerated and weight reduction When medically stable --DVT prophylaxis; Subcu Lovenox Closely monitor patient and adjust the management as needed Plan of care reviewed with the patient and his nurse I also discussed with the law enforcement officers, answered their questions Continue current management Home O2 evaluation Possible discharge in 1 to 2 days if stable 11/13/2021; history of COVID-19, elevated inflammatory markers Patient also has multifocal pneumonia and UTI, on IV Zithromax and Rocephin Follow cultures, worsening leukocytosis, consider ID evaluation Continue current management 11/14/2021; Rich PCR test positive on 11/13/2021 Patient is saturating on room air Persistent fever, leukocytosis, ID consult 11/15/2021; ID evaluation noted and appreciated Closely monitor the patient and adjust the management as needed Home oxygen evaluation prior to discharge 11/16/2021; patient currently on 3 L of nasal cannula oxygen[improved from 15 L Ventimask yesterday] Will continue dexamethasone and remdesivir for his COVID 19 infection Enforcement officers outside the door History Interval history: Seen and examined the patient at the bedside isolation precautions and PPE protocol followed Low-grade fever last night T-max last 24 hours 100.7 F Afebrile this morning On 3 L nasal cannula oxygen Hospitalist Physical - Constitutional Vitals: Temp Pulse Resp BP Pulse Ox 98.3 F 114 H 20 143/71 96 11/16/21 05:55 11/16/21 05:53 11/16/21 05:55 11/16/21 05:53 11/16/21 05:53 General appearance: Present: no acute distress, well-nourished - EENT Eyes: Present: PERRL, EOM intact - Neck Neck: Present: supple, normal ROM - Respiratory Respiratory effort: normal Respiratory: bilateral: diminished, rales, negative: rhonchi, wheezing - Cardiovascular Rhythm: regular Heart Sounds: Present: S1 & S2 - Extremities Extremities: no ischemia, No edema - Abdominal General gastrointestinal: soft, non-tender, non-distended, normal bowel sounds - Integumentary Integumentary: Present: clear, warm - Psychiatric Psychiatric: appropriate mood/affect, cooperative - Neurologic Neurologic: moves all extremities HEART Score - HEART Score Troponin: Troponin T < 0.010 ng/mL (0.00-0.029) 11/11/21 08:55 Results - Labs CBC & Chem 7: 11/13/21 11:37 11/15/21 10:42 Labs: Laboratory Last Values WBC 27.6 K/mm3 (4.5-11.0) H 11/13/21 11:37 RBC 2.26 M/mm3 (3.65-5.03) L 11/13/21 11:37 Hgb 7.7 gm/dl (11.8-15.2) L 11/13/21 11:37 Hct 23.2 % (35.5-45.6) L 11/13/21 11:37 MCV 103 fl (84-94) H 11/13/21 11:37 MCH 34 pg (28-32) H 11/13/21 11:37 MCHC 33 % (32-34) 11/13/21 11:37 RDW 20.5 % (13.2-15.2) H 11/13/21 11:37 Plt Count 200 K/mm3 (140-440) 11/13/21 11:37 Add Manual Diff Complete 11/13/21 11:37 Total Counted 100 11/13/21 11:37 Seg Neuts % (Manual) 77.0 % (40.0-70.0) H 11/13/21 11:37 Band Neutrophils % 2.0 % 11/13/21 11:37 Lymphocytes % (Manual) 17.0 % (13.4-35.0) 11/13/21 11:37 Reactive Lymphs % (Man) 1.0 % 11/13/21 11:37 Monocytes % (Manual) 2.0 % (0.0-7.3) 11/13/21 11:37 Eosinophils % (Manual) 0 % (0.0-4.3) 11/13/21 11:37 Basophils % (Manual) 0 % (0.0-1.8) 11/13/21 11:37 Metamyelocytes % 0 % 11/13/21 11:37 Myelocytes % 1.0 % 11/13/21 11:37 Promyelocytes % 0 % 11/13/21 11:37 Blast Cells % 0 % 11/13/21 11:37 Nucleated RBC % 19.0 % (0.0-0.9) H 11/13/21 11:37 Seg Neutrophils # Man 21.3 K/mm3 (1.8-7.7) H 11/13/21 11:37 Band Neutrophils # 0.6 K/mm3 11/13/21 11:37 Lymphocytes # (Manual) 4.7 K/mm3 (1.2-5.4) 11/13/21 11:37 Abs React Lymphs (Man) 0.3 K/mm3 11/13/21 11:37 Monocytes # (Manual) 0.6 K/mm3 (0.0-0.8) 11/13/21 11:37 Eosinophils # (Manual) 0.0 K/mm3 (0.0-0.4) 11/13/21 11:37 Basophils # (Manual) 0.0 K/mm3 (0.0-0.1) 11/13/21 11:37 Metamyelocytes # 0.0 K/mm3 11/13/21 11:37 Myelocytes # 0.3 K/mm3 11/13/21 11:37 Promyelocytes # 0.0 K/mm3 11/13/21 11:37 Blast Cells # 0.0 K/mm3 11/13/21 11:37 WBC Morphology Not Reportable 11/13/21 11:37 Hypersegmented Neuts Not Reportable 11/13/21 11:37 Hyposegmented Neuts Not Reportable 11/13/21 11:37 Hypogranular Neuts Not Reportable 11/13/21 11:37 Smudge Cells Not Reportable 11/13/21 11:37 Toxic Granulation Not Reportable 11/13/21 11:37 Toxic Vacuolation Not Reportable 11/13/21 11:37 Dohle Bodies Not Reportable 11/13/21 11:37 Pelger-Huet Anomaly Not Reportable 11/13/21 11:37 Aric Rods Not Reportable 11/13/21 11:37 Platelet Estimate Consistent w auto 11/13/21 11:37 Clumped Platelets Not Reportable 11/13/21 11:37 Plt Clumps, EDTA Not Reportable 11/13/21 11:37 Large Platelets Not Reportable 11/13/21 11:37 Giant Platelets Not Reportable 11/13/21 11:37 Platelet Satelliting Not Reportable 11/13/21 11:37 Plt Morphology Comment Not Reportable 11/13/21 11:37 RBC Morphology Not Reportable 11/13/21 11:37 Dimorphic RBCs Not Reportable 11/13/21 11:37 Polychromasia 1+ 11/13/21 11:37 Hypochromasia Not Reportable 11/13/21 11:37 Poikilocytosis 2+ 11/13/21 11:37 Anisocytosis 2+ 11/13/21 11:37 Microcytosis Not Reportable 11/13/21 11:37 Macrocytosis Not Reportable 11/13/21 11:37 Spherocytes 2+ 11/13/21 11:37 Pappenheimer Bodies Not Reportable 11/13/21 11:37 Sickle Cells Few 11/13/21 11:37 Target Cells 1+ 11/13/21 11:37 Tear Drop Cells Not Reportable 11/13/21 11:37 Ovalocytes Not Reportable 11/13/21 11:37 Helmet Cells Not Reportable 11/13/21 11:37 [place] Bodies Not Reportable 11/13/21 11:37 [place] Rings Not Reportable 11/13/21 11:37 [place] Cells Not Reportable 11/13/21 11:37 Bite Cells Not Reportable 11/13/21 11:37 Crenated Cell Not Reportable 11/13/21 11:37 Elliptocytes Not Reportable 11/13/21 11:37 Acanthocytes (Spur) Not Reportable 11/13/21 11:37 Rouleaux Not Reportable 11/13/21 11:37 Hemoglobin C Crystals Not Reportable 11/13/21 11:37 Schistocytes Not Reportable 11/13/21 11:37 Malaria parasites Not Reportable 11/13/21 11:37 Percent Retic 8.16 % (0.78-2.58) H 11/11/21 08:55 Joseph Bodies Not Reportable 11/13/21 11:37 Hem Pathologist Commnt No 11/13/21 11:37 PT 13.6 Sec. (12.2-14.9) 11/11/21 08:55 INR 0.94 (0.87-1.13) 11/11/21 08:55 D-Dimer 4072.35 ng/mlDDU (0-234) H 11/14/21 05:28 Sodium 136 mmol/L (137-145) L 11/15/21 10:42 Potassium 4.0 mmol/L (3.6-5.0) 11/15/21 10:42 Chloride 96.5 mmol/L (98-107) L 11/15/21 10:42 Carbon Dioxide 26 mmol/L (22-30) 11/15/21 10:42 Anion Gap 18 mmol/L 11/15/21 10:42 BUN 12 mg/dL (9-20) 11/15/21 10:42 Creatinine 0.3 mg/dL (0.8-1.3) L 11/15/21 10:42 Estimated GFR > 60 ml/min 11/15/21 10:42 BUN/Creatinine Ratio 40 % 11/15/21 10:42 Glucose 113 mg/dL (75-100) H 11/15/21 10:42 Lactic Acid 0.90 mmol/L (0.7-2.0) 11/11/21 11:18 Calcium 8.7 mg/dL (8.4-10.2) 11/15/21 10:42 Magnesium 2.10 mg/dL (1.7-2.3) 11/13/21 11:37 Ferritin > 2000.0 ng/mL (30.0-300.0) H 11/14/21 05:28 Total Bilirubin 7.40 mg/dL (0.1-1.2) H 11/15/21 10:42 AST 43 units/L (5-40) H 11/15/21 10:42 ALT 26 units/L (7-56) 11/15/21 10:42 Alkaline Phosphatase 382 units/L (35-129) H 11/15/21 10:42 Lactate Dehydrogenase 1740 units/L (91-180) H 11/14/21 05:28 Total Creatine Kinase 70 units/L (55-170) 11/11/21 08:55 Troponin T < 0.010 ng/mL (0.00-0.029) 11/11/21 08:55 C-Reactive Protein 30.00 mg/dL (0.00-1.30) H 11/14/21 05:28 Total Protein 6.8 g/dL (6.3-8.2) 11/15/21 10:42 Albumin 3.3 g/dL (3.9-5) L 11/15/21 10:42 Albumin/Globulin Ratio 0.9 % 11/15/21 10:42 Procalcitonin 0.16 ng/mL (<0.15) 11/11/21 11:18 Coronavirus (PCR) Positive (Negative) A 11/13/21 Unknown Microbiology: Microbiology 11/14/21 07:50 Urine,Clean Catch Urine Culture - Preliminary NO GROWTH AFTER 24 HOURS 11/11/21 11:18 Peripheral/Venous Blood Culture - Preliminary NO GROWTH AFTER 4 DAYS 11/11/21 11:18 Peripheral/Venous Blood Culture - Preliminary NO GROWTH AFTER 4 DAYS Bennett/IV: Voiding Method Urinal Active Medications - Current Medications Current Medications: Generic Name Dose Route Start Last Admin Trade Name Freq PRN Reason Stop Dose Admin Azithromycin 500 mg 11/14/21 12:00 11/15/21 09:39 Azithromycin 250 Mg Tab PO 11/17/21 09:59 500 mg QDAY ARYA Administration Bisacodyl 10 mg 11/11/21 14:40 Bisacodyl 10 Mg Rect Supp MS QDAY PRN Constipation unrelieved by MOM Dexamethasone 6 mg 11/15/21 11:00 11/15/21 12:46 Dexamethasone 4 Mg/Ml Vial IV 11/24/21 10:01 6 mg DAILY ARYA Administration Folic Acid 1 mg 11/12/21 10:00 11/15/21 09:39 Folic Acid 1 Mg Tab PO 1 mg QDAY ARYA Administration Guaifenesin 10 ml 11/15/21 02:40 11/15/21 22:17 Guaifenesin Dm 200/20 Mg Oral Liqd 10 Ml PO 10 ml Q6H PRN Administration Cough Hydromorphone HCl 1 mg 11/12/21 15:08 11/16/21 01:46 Hydromorphone 1 Mg/1 Ml Inj IV 1 mg Q8H PRN Administration Pain , Severe (7-10) REMDESIVIR 100 mg/ Sodium 250 mls @ 500 mls/hr 11/16/21 21:00 Chloride IV 11/19/21 21:29 Q24HR@2100 ARYA Magnesium Hydroxide 30 ml 11/11/21 14:37 11/15/21 03:11 Magnesium Hydroxide (Mom) Oral Liqd Udc PO 30 ml Q4H PRN Administration Constipation Metoprolol Tartrate 12.5 mg 11/13/21 22:00 11/15/21 22:16 Metoprolol Tartrate 25 Mg Tab PO 12.5 mg BID ARYA Administration Multivitamins 1 each 11/11/21 15:00 11/15/21 09:38 Multivitamins ,Therapeutic Tab PO 1 each QDAY ARYA Administration Ondansetron HCl 4 mg 11/11/21 14:40 Ondansetron 4 Mg/2 Ml Inj IV Q8H PRN Nausea And Vomiting Senna 17.2 mg 11/11/21 22:00 11/15/21 22:16 Sennosides 8.6 Mg Tab PO 17.2 mg QHS ARYA Administration Sodium Chloride 50 ml 11/15/21 13:00 11/15/21 12:46 Sodium Chloride 0.9% 50 Ml Ivpb IV 11/19/21 21:01 50 ml Q24HR@2100 ARYA Administration
[2021-11-16 09:13] LABS: Alanine Aminotransferase 47 units/L (7-56); Albumin 3.4 g/dL (3.9-5); Blood Urea Nitrogen 8 mg/dL (9-20); Calcium 8.8 mg/dL (8.4-10.2); Hemolysis Index 0
[2021-11-16 09:18] LABS: BUN/Creatinine Ratio 16
[2021-11-16] MEDS: METOPROLOL TARTRATE 25 MG TAB PO SCH ×2 (09:49→22:47)
[2021-11-16] MEDS: AZITHROMYCIN 250 MG TAB PO SCH (09:50)
[2021-11-16] MEDS: MULTIVITAMINS ,THERAPEUTIC TAB PO SCH (09:50)
[2021-11-16] MEDS: dexAMETHasone 4 MG/ML VIAL IV SCH (09:51)
[2021-11-16] MEDS: FOLIC ACID 1 MG TAB PO SCH (09:51)
--- NOTE | 2021-11-16 18:54 | Progress Note ---
Assessment and Plan Assessment and plan: -- Low-grade fever T-max last 24 hours 100.7 Afebrile this morning, due to COVID-19 infection Patient is on 3 L nasal cannula oxygen today[significantly improved from 15 L Ventimask yesterday] Slowly wean as tolerated, home O2 evaluation prior to discharge --COVID-19 positive 11/13/2021 Elevated inflammatory markers Patient is hypoxia on 15 L of Ventimask Wean as tolerated titrate Start dexamethasone IV for 10 days Remdesivir per protocol for 5 days 12/06 today ID following -- Acute hypoxic respiratory failure Requiring 15 L/50%/96 O2 sat on Ventimask Due to COVID-19 pneumonia -- History of COVID-19 pneumonia prior to admission --Sepsis due to multifocal bilateral pneumonia; Empiric antibiotics Rocephin and Zithromax minimal elevation of procalcitonin defer to ID recommendation regarding antibiotics --Sickle cell disease with painful crisis; IV fluids, pain medication, oxygen titrate O2 sats to more than 90% Thiamine folic acid, Supportive care --Sickle cell anemia; hemoglobin 7.2-7.7 Closely monitor H&H, transfuse as needed --Elevated D-dimers :CTA negative for PE lower extremity venous Doppler negative for DVT --Leukocytosis; worsening Possible UTI, empiric antibiotics Closely monitor --Obesity; BMI 30.0 Advised diet modification, exercise as tolerated and weight reduction When medically stable --DVT prophylaxis; Subcu Lovenox Closely monitor patient and adjust the management as needed Plan of care reviewed with the patient and his nurse I also discussed with the law enforcement officers, answered their questions Continue current management Home O2 evaluation Possible discharge in 1 to 2 days if stable 11/13/2021; history of COVID-19, elevated inflammatory markers Patient also has multifocal pneumonia and UTI, on IV Zithromax and Rocephin Follow cultures, worsening leukocytosis, consider ID evaluation Continue current management 11/14/2021; Rich PCR test positive on 11/13/2021 Patient is saturating on room air Persistent fever, leukocytosis, ID consult 11/15/2021; ID evaluation noted and appreciated Closely monitor the patient and adjust the management as needed Home oxygen evaluation prior to discharge 11/16/2021; patient currently on 3 L of nasal cannula oxygen[improved from 15 L Ventimask yesterday] Will continue dexamethasone and remdesivir for his COVID 19 infection Enforcement officers outside the door 11/17/2021; patient on 3 L of nasal cannula oxygen, 2 / 4 remdesivir, third dose Thursday, fourth dose Thursday Possible discharge on Thursday/Thursday if stable on home oxygen Worsening leukocytosis, probably due to steroids History Interval history: I have seen and examined the patient at the bedside/isolation precautions and PPE protocols followed Patient's chart and medications reviewed No new events reported by the nursing Patient anxious to go home on 3 L nasal cannula Hospitalist Physical - Constitutional Vitals: Temp Pulse Resp BP Pulse Ox 99.5 F 89 20 129/60 97 11/16/21 16:07 11/16/21 16:07 11/16/21 18:15 11/16/21 16:07 11/16/21 16:07 General appearance: Present: no acute distress, well-nourished - EENT Eyes: Present: PERRL, EOM intact - Neck Neck: Present: supple, normal ROM - Respiratory Respiratory effort: normal Respiratory: bilateral: diminished, negative: rales, rhonchi, wheezing - Cardiovascular Rhythm: regular Heart Sounds: Present: S1 & S2 - Extremities Extremities: no ischemia, No edema - Abdominal General gastrointestinal: soft, non-tender, non-distended, normal bowel sounds - Integumentary Integumentary: Present: clear, warm - Psychiatric Psychiatric: appropriate mood/affect, cooperative - Neurologic Neurologic: moves all extremities HEART Score - HEART Score Troponin: Troponin T < 0.010 ng/mL (0.00-0.029) 11/11/21 08:55 Results - Labs CBC & Chem 7: 11/17/21 07:51 11/17/21 07:51 Labs: Laboratory Last Values WBC 27.6 K/mm3 (4.5-11.0) H 11/13/21 11:37 RBC 2.26 M/mm3 (3.65-5.03) L 11/13/21 11:37 Hgb 7.7 gm/dl (11.8-15.2) L 11/13/21 11:37 Hct 23.2 % (35.5-45.6) L 11/13/21 11:37 MCV 103 fl (84-94) H 11/13/21 11:37 MCH 34 pg (28-32) H 11/13/21 11:37 MCHC 33 % (32-34) 11/13/21 11:37 RDW 20.5 % (13.2-15.2) H 11/13/21 11:37 Plt Count 200 K/mm3 (140-440) 11/13/21 11:37 Add Manual Diff Complete 11/13/21 11:37 Total Counted 100 11/13/21 11:37 Seg Neuts % (Manual) 77.0 % (40.0-70.0) H 11/13/21 11:37 Band Neutrophils % 2.0 % 11/13/21 11:37 Lymphocytes % (Manual) 17.0 % (13.4-35.0) 11/13/21 11:37 Reactive Lymphs % (Man) 1.0 % 11/13/21 11:37 Monocytes % (Manual) 2.0 % (0.0-7.3) 11/13/21 11:37 Eosinophils % (Manual) 0 % (0.0-4.3) 11/13/21 11:37 Basophils % (Manual) 0 % (0.0-1.8) 11/13/21 11:37 Metamyelocytes % 0 % 11/13/21 11:37 Myelocytes % 1.0 % 11/13/21 11:37 Promyelocytes % 0 % 11/13/21 11:37 Blast Cells % 0 % 11/13/21 11:37 Nucleated RBC % 19.0 % (0.0-0.9) H 11/13/21 11:37 Seg Neutrophils # Man 21.3 K/mm3 (1.8-7.7) H 11/13/21 11:37 Band Neutrophils # 0.6 K/mm3 11/13/21 11:37 Lymphocytes # (Manual) 4.7 K/mm3 (1.2-5.4) 11/13/21 11:37 Abs React Lymphs (Man) 0.3 K/mm3 11/13/21 11:37 Monocytes # (Manual) 0.6 K/mm3 (0.0-0.8) 11/13/21 11:37 Eosinophils # (Manual) 0.0 K/mm3 (0.0-0.4) 11/13/21 11:37 Basophils # (Manual) 0.0 K/mm3 (0.0-0.1) 11/13/21 11:37 Metamyelocytes # 0.0 K/mm3 11/13/21 11:37 Myelocytes # 0.3 K/mm3 11/13/21 11:37 Promyelocytes # 0.0 K/mm3 11/13/21 11:37 Blast Cells # 0.0 K/mm3 11/13/21 11:37 WBC Morphology Not Reportable 11/13/21 11:37 Hypersegmented Neuts Not Reportable 11/13/21 11:37 Hyposegmented Neuts Not Reportable 11/13/21 11:37 Hypogranular Neuts Not Reportable 11/13/21 11:37 Smudge Cells Not Reportable 11/13/21 11:37 Toxic Granulation Not Reportable 11/13/21 11:37 Toxic Vacuolation Not Reportable 11/13/21 11:37 Dohle Bodies Not Reportable 11/13/21 11:37 Pelger-Huet Anomaly Not Reportable 11/13/21 11:37 Aric Rods Not Reportable 11/13/21 11:37 Platelet Estimate Consistent w auto 11/13/21 11:37 Clumped Platelets Not Reportable 11/13/21 11:37 Plt Clumps, EDTA Not Reportable 11/13/21 11:37 Large Platelets Not Reportable 11/13/21 11:37 Giant Platelets Not Reportable 11/13/21 11:37 Platelet Satelliting Not Reportable 11/13/21 11:37 Plt Morphology Comment Not Reportable 11/13/21 11:37 RBC Morphology Not Reportable 11/13/21 11:37 Dimorphic RBCs Not Reportable 11/13/21 11:37 Polychromasia 1+ 11/13/21 11:37 Hypochromasia Not Reportable 11/13/21 11:37 Poikilocytosis 2+ 11/13/21 11:37 Anisocytosis 2+ 11/13/21 11:37 Microcytosis Not Reportable 11/13/21 11:37 Macrocytosis Not Reportable 11/13/21 11:37 Spherocytes 2+ 11/13/21 11:37 Pappenheimer Bodies Not Reportable 11/13/21 11:37 Sickle Cells Few 11/13/21 11:37 Target Cells 1+ 11/13/21 11:37 Tear Drop Cells Not Reportable 11/13/21 11:37 Ovalocytes Not Reportable 11/13/21 11:37 Helmet Cells Not Reportable 11/13/21 11:37 Escobar-[place] Bodies Not Reportable 11/13/21 11:37 [place] Rings Not Reportable 11/13/21 11:37 Tie Siding Cells Not Reportable 11/13/21 11:37 Bite Cells Not Reportable 11/13/21 11:37 Crenated Cell Not Reportable 11/13/21 11:37 Elliptocytes Not Reportable 11/13/21 11:37 Acanthocytes (Spur) Not Reportable 11/13/21 11:37 Rouleaux Not Reportable 11/13/21 11:37 Hemoglobin C Crystals Not Reportable 11/13/21 11:37 Schistocytes Not Reportable 11/13/21 11:37 Malaria parasites Not Reportable 11/13/21 11:37 Percent Retic 8.16 % (0.78-2.58) H 11/11/21 08:55 Joseph Bodies Not Reportable 11/13/21 11:37 Hem Pathologist Commnt No 11/13/21 11:37 PT 13.6 Sec. (12.2-14.9) 11/11/21 08:55 INR 0.94 (0.87-1.13) 11/11/21 08:55 D-Dimer 4072.35 ng/mlDDU (0-234) H 11/14/21 05:28 Sodium 134 mmol/L (137-145) L 11/16/21 08:01 Potassium 3.2 mmol/L (3.6-5.0) L 11/16/21 08:01 Chloride 95.3 mmol/L (98-107) L 11/16/21 08:01 Carbon Dioxide 27 mmol/L (22-30) 11/16/21 08:01 Anion Gap 15 mmol/L 11/16/21 08:01 BUN 8 mg/dL (9-20) L 11/16/21 08:01 Creatinine 0.5 mg/dL (0.8-1.3) L D 11/16/21 08:01 Estimated GFR > 60 ml/min 11/16/21 08:01 BUN/Creatinine Ratio 16 % 11/16/21 08:01 Glucose 107 mg/dL (75-100) H 11/16/21 08:01 Lactic Acid 0.90 mmol/L (0.7-2.0) 11/11/21 11:18 Calcium 8.8 mg/dL (8.4-10.2) 11/16/21 08:01 Magnesium 2.10 mg/dL (1.7-2.3) 11/13/21 11:37 Ferritin > 2000.0 ng/mL (30.0-300.0) H 11/14/21 05:28 Total Bilirubin 7.30 mg/dL (0.1-1.2) H 11/16/21 08:01 AST 69 units/L (5-40) H 11/16/21 08:01 ALT 47 units/L (7-56) 11/16/21 08:01 Alkaline Phosphatase 350 units/L (35-129) H 11/16/21 08:01 Lactate Dehydrogenase 1740 units/L (91-180) H 11/14/21 05:28 Total Creatine Kinase 70 units/L (55-170) 11/11/21 08:55 Troponin T < 0.010 ng/mL (0.00-0.029) 11/11/21 08:55 C-Reactive Protein 30.00 mg/dL (0.00-1.30) H 11/14/21 05:28 Total Protein 6.9 g/dL (6.3-8.2) 11/16/21 08:01 Albumin 3.4 g/dL (3.9-5) L 11/16/21 08:01 Albumin/Globulin Ratio 1.0 % 11/16/21 08:01 Procalcitonin 0.16 ng/mL (<0.15) 11/11/21 11:18 Coronavirus (PCR) Positive (Negative) A 11/13/21 Unknown Microbiology: Microbiology 11/11/21 11:18 Peripheral/Venous Blood Culture - Final NO GROWTH AFTER 5 DAYS 11/11/21 11:18 Peripheral/Venous Blood Culture - Final NO GROWTH AFTER 5 DAYS 11/14/21 07:50 Urine,Clean Catch Urine Culture - Final NO GROWTH AFTER 48 HOURS Bennett/IV: Voiding Method Urinal Active Medications - Current Medications Current Medications: Generic Name Dose Route Start Last Admin Trade Name Freq PRN Reason Stop Dose Admin Bisacodyl 10 mg 11/11/21 14:40 Bisacodyl 10 Mg Rect Supp [place] QDAY PRN Constipation unrelieved by MOM Dexamethasone 6 mg 11/15/21 11:00 11/16/21 09:51 Dexamethasone 4 Mg/Ml Vial IV 11/24/21 10:01 6 mg DAILY ARYA Administration Folic Acid 1 mg 11/12/21 10:00 11/16/21 09:51 Folic Acid 1 Mg Tab PO 1 mg QDAY ARYA Administration Guaifenesin 10 ml 11/15/21 02:40 11/15/21 22:17 Guaifenesin Dm 200/20 Mg Oral Liqd 10 Ml PO 10 ml Q6H PRN Administration Cough Hydromorphone HCl 1 mg 11/12/21 15:08 11/16/21 18:15 Hydromorphone 1 Mg/1 Ml Inj IV 1 mg Q8H PRN Administration Pain , Severe (7-10) REMDESIVIR 100 mg/ Sodium 250 mls @ 500 mls/hr 11/16/21 21:00 Chloride IV 11/19/21 21:29 Q24HR@2100 [facility] Magnesium Hydroxide 30 ml 11/11/21 14:37 11/15/21 03:11 Magnesium Hydroxide (Mom) Oral Liqd Udc PO 30 ml Q4H PRN Administration Constipation Metoprolol Tartrate 12.5 mg 11/13/21 22:00 11/16/21 09:49 Metoprolol Tartrate 25 Mg Tab PO 12.5 mg BID ARYA Administration Multivitamins 1 each 11/11/21 15:00 11/16/21 09:50 Multivitamins ,Therapeutic Tab PO 1 each QDAY ARYA Administration Ondansetron HCl 4 mg 11/11/21 14:40 Ondansetron 4 Mg/2 Ml Inj IV Q8H PRN Nausea And Vomiting Senna 17.2 mg 11/11/21 22:00 11/15/21 22:16 Sennosides 8.6 Mg Tab PO 17.2 mg QHS ARYA Administration Sodium Chloride 50 ml 11/15/21 13:00 11/15/21 12:46 Sodium Chloride 0.9% 50 Ml Ivpb IV 11/19/21 21:01 50 ml Q24HR@2100 ARYA Administration
[2021-11-16] MEDS: POTASSIUM CHLORIDE ER 20 MEQ TAB PO SCH (21:40)
[2021-11-16] MEDS: SODIUM CHLORIDE 0.9% 50 ML IVPB IV SCH (22:32)
[2021-11-16] MEDS: REMDESIVIR 100 MG in SODIUM CHLORIDE 0.9% 250ML 250 ML IV SCH (22:32)
[2021-11-16] MEDS: SENNOSIDES 8.6 MG TAB PO SCH (22:33)
[2021-11-17] MEDS: HYDROmorphone 1 MG/1 ML INJ IV PRN ×3 (02:18→21:55)
[2021-11-17] MEDS: POTASSIUM CHLORIDE ER 20 MEQ TAB PO SCH (02:19)
[2021-11-17 08:22] LABS: Hematocrit 21.3 % (35.5-45.6); Hemoglobin 6.7 gm/dl (11.8-15.2); Mean Corpuscular HGB Conc 31 % (32-34); Mean Corpuscular Volume 100 fl (84-94); Red Blood Count 2.13 M/mm3 (3.65-5.03)
[2021-11-17 08:27] LABS: Red Cell Distribution Width 20.2 % (13.2-15.2)
[2021-11-17 08:50] LABS: Alanine Aminotransferase 45 units/L (7-56); Albumin 3.6 g/dL (3.9-5); Blood Urea Nitrogen 11 mg/dL (9-20); Hemolysis Index 0
[2021-11-17 08:51] LABS: BUN/Creatinine Ratio 22
[2021-11-17] MEDS: FOLIC ACID 1 MG TAB PO SCH (09:41)
[2021-11-17] MEDS: dexAMETHasone 4 MG/ML VIAL IV SCH (09:42)
[2021-11-17] MEDS: MULTIVITAMINS ,THERAPEUTIC TAB PO SCH (09:42)
[2021-11-17] MEDS: METOPROLOL TARTRATE 25 MG TAB PO SCH ×2 (09:43→21:56)
[2021-11-17 12:54] LABS: Anisocytosis 1+; Basophils % (Manual) 0 % (0.0-1.8); Eosinophils % (Manual) 0 % (0.0-4.3); Total Cells Counted 100
[2021-11-17 12:55] LABS: Giant Platelets Few; Hypochromasia 1+; Platelet Estimate Consistent w Auto; Target Cells 1+
[2021-11-17 12:58] LABS: Platelet Count 324 K/mm3 (140-440)
[2021-11-17] MEDS: guaiFENesin DM 200/20 MG ORAL LIQD 10 ML PO PRN (14:24)
[2021-11-17] MEDS: SENNOSIDES 8.6 MG TAB PO SCH (21:55)
[2021-11-17] MEDS: REMDESIVIR 100 MG in SODIUM CHLORIDE 0.9% 250ML 250 ML IV SCH (21:55)
[2021-11-17] MEDS: SODIUM CHLORIDE 0.9% 1000 ML 1,000 ML IV SCH (21:58)
[2021-11-17] MEDS: SODIUM CHLORIDE 0.9% 50 ML IVPB IV SCH (22:14)
[2021-11-18] MEDS: HYDROmorphone 1 MG/1 ML INJ IV PRN ×3 (06:06→21:15)
[2021-11-18] MEDS: SODIUM CHLORIDE 0.9% 1000 ML 1,000 ML IV SCH ×2 (07:30→16:11)
--- NOTE | 2021-11-18 08:54 | Progress Note ---
Assessment and Plan Assessment and plan: Patient is on 3 L nasal cannula oxygen today[s/p 15 L Ventimask ] Slowly wean as tolerated, home O2 evaluation prior to discharge --Anemia; Hb 6.7, 1 unit of PRBC transfusion Closely monitor H&H and transfuse as needed --COVID-19 positive 11/13/2021 Elevated inflammatory markers Patient is hypoxia on 15 L of Ventimask Wean as tolerated titrate Start dexamethasone IV for 10 days Remdesivir per protocol for 5 days 01/03 today ID following -- Acute hypoxic respiratory failure Requiring 15 L/50%/96 O2 sat on Ventimask Due to COVID-19 pneumonia -- History of COVID-19 pneumonia prior to admission --Sepsis due to multifocal bilateral pneumonia; Empiric antibiotics Rocephin and Zithromax minimal elevation of procalcitonin defer to ID recommendation regarding antibiotics --Sickle cell disease with painful crisis; IV fluids, pain medication, oxygen titrate O2 sats to more than 90% Thiamine folic acid, Supportive care --Sickle cell anemia; hemoglobin 7.2-7.7 Closely monitor H&H, transfuse as needed --Elevated D-dimers :CTA negative for PE lower extremity venous Doppler negative for DVT --Leukocytosis; worsening Possible UTI, empiric antibiotics Closely monitor --Obesity; BMI 30.0 Advised diet modification, exercise as tolerated and weight reduction When medically stable --DVT prophylaxis; Subcu Lovenox Closely monitor patient and adjust the management as needed Plan of care reviewed with the patient and his nurse I also discussed with the law enforcement officers, answered their questions Continue current management Home O2 evaluation Possible discharge in 1 to 2 days if stable 11/13/2021; history of COVID-19, elevated inflammatory markers Patient also has multifocal pneumonia and UTI, on IV Zithromax and Rocephin Follow cultures, worsening leukocytosis, consider ID evaluation Continue current management 11/14/2021; Rich PCR test positive on 11/13/2021 Patient is saturating on room air Persistent fever, leukocytosis, ID consult 11/15/2021; ID evaluation noted and appreciated Closely monitor the patient and adjust the management as needed Home oxygen evaluation prior to discharge 11/16/2021; patient currently on 3 L of nasal cannula oxygen[improved from 15 L Ventimask yesterday] Will continue dexamethasone and remdesivir for his COVID 19 infection Enforcement officers outside the door 11/17/2021; patient on 3 L of nasal cannula oxygen, 2 / 4 remdesivir, third dose Thursday, fourth dose Thursday Possible discharge on Thursday/Thursday if stable on home oxygen Worsening leukocytosis, probably due to steroids 11/18/2021; as of last night patient is still on 3 L nasal cannula, wean as tolerated, home O2 set up prior to discharge 3/4 remdesivir, possible discharge in 1 to 2 days if stable Transfuse 1 unit of PRBC Hb 6.7 History Interval history: I have seen and examined the patient at the bedside Patient's chart and medications reviewed No new events reported by the nursing Vital signs noted Hospitalist Physical - Constitutional Vitals: Temp Pulse Resp BP Pulse Ox 99.1 F 77 16 96/46 99 11/18/21 04:10 11/18/21 04:10 11/18/21 04:10 11/18/21 04:10 11/18/21 04:10 General appearance: Present: no acute distress, well-nourished - EENT Eyes: Present: PERRL, EOM intact - Neck Neck: Present: supple, normal ROM - Respiratory Respiratory effort: normal Respiratory: bilateral: diminished, negative: rales, rhonchi, wheezing - Cardiovascular Rhythm: regular Heart Sounds: Present: S1 & S2 - Extremities Extremities: no ischemia, No edema - Abdominal General gastrointestinal: soft, non-tender, non-distended, normal bowel sounds - Integumentary Integumentary: Present: clear, warm - Psychiatric Psychiatric: appropriate mood/affect, cooperative - Neurologic Neurologic: moves all extremities HEART Score - HEART Score Troponin: Troponin T < 0.010 ng/mL (0.00-0.029) 11/11/21 08:55 Results - Labs CBC & Chem 7: 11/17/21 07:51 11/18/21 09:21 Labs: Laboratory Last Values WBC 27.3 K/mm3 (4.5-11.0) H 11/17/21 07:51 RBC 2.13 M/mm3 (3.65-5.03) L 11/17/21 07:51 Hgb 6.7 gm/dl (11.8-15.2) L 11/17/21 07:51 Hct 21.3 % (35.5-45.6) L 11/17/21 07:51 MCV 100 fl (84-94) H 11/17/21 07:51 MCH 31 pg (28-32) 11/17/21 07:51 MCHC 31 % (32-34) L 11/17/21 07:51 RDW 20.2 % (13.2-15.2) H 11/17/21 07:51 Plt Count 324 K/mm3 (140-440) 11/17/21 07:51 [place] % (Auto) Dining Room Hostess 11/17/21 07:51 Add Manual Diff Complete 11/17/21 07:51 Total Counted 100 11/17/21 07:51 Seg Neuts % (Manual) 77.0 % (40.0-70.0) H 11/17/21 07:51 Band Neutrophils % 0 % 11/17/21 07:51 Lymphocytes % (Manual) 9.0 % (13.4-35.0) L 11/17/21 07:51 Reactive Lymphs % (Man) 0 % 11/17/21 07:51 Monocytes % (Manual) 14.0 % (0.0-7.3) H 11/17/21 07:51 Eosinophils % (Manual) 0 % (0.0-4.3) 11/17/21 07:51 Basophils % (Manual) 0 % (0.0-1.8) 11/17/21 07:51 Metamyelocytes % 0 % 11/17/21 07:51 Myelocytes % 0 % 11/17/21 07:51 Promyelocytes % 0 % 11/17/21 07:51 Blast Cells % 0 % 11/17/21 07:51 Nucleated RBC % 1.0 % (0.0-0.9) H 11/17/21 07:51 Seg Neutrophils # Man 21.0 K/mm3 (1.8-7.7) H 11/17/21 07:51 Band Neutrophils # 0.0 K/mm3 11/17/21 07:51 Lymphocytes # (Manual) 2.5 K/mm3 (1.2-5.4) 11/17/21 07:51 Abs React Lymphs (Man) 0.0 K/mm3 11/17/21 07:51 Monocytes # (Manual) 3.8 K/mm3 (0.0-0.8) H 11/17/21 07:51 Eosinophils # (Manual) 0.0 K/mm3 (0.0-0.4) 11/17/21 07:51 Basophils # (Manual) 0.0 K/mm3 (0.0-0.1) 11/17/21 07:51 Metamyelocytes # 0.0 K/mm3 11/17/21 07:51 Myelocytes # 0.0 K/mm3 11/17/21 07:51 Promyelocytes # 0.0 K/mm3 11/17/21 07:51 Blast Cells # 0.0 K/mm3 11/17/21 07:51 WBC Morphology Not Reportable 11/17/21 07:51 Hypersegmented Neuts Not Reportable 11/17/21 07:51 Hyposegmented Neuts Not Reportable 11/17/21 07:51 Hypogranular Neuts Not Reportable 11/17/21 07:51 Smudge Cells Not Reportable 11/17/21 07:51 Toxic Granulation Not Reportable 11/17/21 07:51 Toxic Vacuolation Not Reportable 11/17/21 07:51 Dohle Bodies Not Reportable 11/17/21 07:51 Pelger-Huet Anomaly Not Reportable 11/17/21 07:51 Aric Rods Not Reportable 11/17/21 07:51 Platelet Estimate Consistent w auto 11/17/21 07:51 Clumped Platelets Not Reportable 11/17/21 07:51 Plt Clumps, EDTA Not Reportable 11/17/21 07:51 Large Platelets Not Reportable 11/17/21 07:51 Giant Platelets Few 11/17/21 07:51 Platelet Satelliting Not Reportable 11/17/21 07:51 Plt Morphology Comment Not Reportable 11/17/21 07:51 RBC Morphology Not Reportable 11/17/21 07:51 Dimorphic RBCs Not Reportable 11/17/21 07:51 Polychromasia 1+ 11/17/21 07:51 Hypochromasia 1+ 11/17/21 07:51 Poikilocytosis Not Reportable 11/17/21 07:51 Anisocytosis 1+ 11/17/21 07:51 Microcytosis Not Reportable 11/17/21 07:51 Macrocytosis Not Reportable 11/17/21 07:51 Spherocytes Not Reportable 11/17/21 07:51 Pappenheimer Bodies Not Reportable 11/17/21 07:51 Sickle Cells Not Reportable 11/17/21 07:51 Target Cells 1+ 11/17/21 07:51 Tear Drop Cells Not Reportable 11/17/21 07:51 Ovalocytes Not Reportable 11/17/21 07:51 Helmet Cells Not Reportable 11/17/21 07:51 Escobar-[place] Bodies Not Reportable 11/17/21 07:51 [place] Rings Not Reportable 11/17/21 07:51 [place] Cells Not Reportable 11/17/21 07:51 Bite Cells Not Reportable 11/17/21 07:51 Crenated Cell Not Reportable 11/17/21 07:51 Elliptocytes Not Reportable 11/17/21 07:51 Acanthocytes (Spur) Not Reportable 11/17/21 07:51 Rouleaux Not Reportable 11/17/21 07:51 Hemoglobin C Crystals Not Reportable 11/17/21 07:51 Schistocytes Not Reportable 11/17/21 07:51 Malaria parasites Not Reportable 11/17/21 07:51 Percent Retic 8.16 % (0.78-2.58) H 11/11/21 08:55 Joseph Bodies Not Reportable 11/17/21 07:51 Hem Pathologist Commnt No 11/17/21 07:51 PT 13.6 Sec. (12.2-14.9) 11/11/21 08:55 INR 0.94 (0.87-1.13) 11/11/21 08:55 D-Dimer 4072.35 ng/mlDDU (0-234) H 11/14/21 05:28 Sodium 137 mmol/L (137-145) 11/17/21 07:51 Potassium 4.1 mmol/L (3.6-5.0) D 11/17/21 07:51 Chloride 100.5 mmol/L (98-107) 11/17/21 07:51 Carbon Dioxide 26 mmol/L (22-30) 11/17/21 07:51 Anion Gap 15 mmol/L 11/17/21 07:51 BUN 11 mg/dL (9-20) 11/17/21 07:51 Creatinine 0.5 mg/dL (0.8-1.3) L 11/17/21 07:51 Estimated GFR > 60 ml/min 11/17/21 07:51 BUN/Creatinine Ratio 22 % 11/17/21 07:51 Glucose 121 mg/dL (75-100) H 11/17/21 07:51 Lactic Acid 0.90 mmol/L (0.7-2.0) 11/11/21 11:18 Calcium 9.0 mg/dL (8.4-10.2) 11/17/21 07:51 Magnesium 2.80 mg/dL (1.7-2.3) H 11/17/21 07:51 Ferritin > 2000.0 ng/mL (30.0-300.0) H 11/14/21 05:28 Total Bilirubin 3.80 mg/dL (0.1-1.2) H 11/17/21 07:51 AST 32 units/L (5-40) 11/17/21 07:51 ALT 45 units/L (7-56) 11/17/21 07:51 Alkaline Phosphatase 292 units/L (35-129) H 11/17/21 07:51 Lactate Dehydrogenase 1740 units/L (91-180) H 11/14/21 05:28 Total Creatine Kinase 70 units/L (55-170) 11/11/21 08:55 Troponin T < 0.010 ng/mL (0.00-0.029) 11/11/21 08:55 C-Reactive Protein 30.00 mg/dL (0.00-1.30) H 11/14/21 05:28 Total Protein 7.2 g/dL (6.3-8.2) 11/17/21 07:51 Albumin 3.6 g/dL (3.9-5) L 11/17/21 07:51 Albumin/Globulin Ratio 1.0 % 11/17/21 07:51 Procalcitonin 0.16 ng/mL (<0.15) 11/11/21 11:18 Coronavirus (PCR) Positive (Negative) A 11/13/21 Unknown Bennett/IV: Voiding Method Urinal Active Medications - Current Medications Current Medications: Generic Name Dose Route Start Last Admin Trade Name Freq PRN Reason Stop Dose Admin Bisacodyl 10 mg 11/11/21 14:40 Bisacodyl 10 Mg Rect Supp [place] QDAY PRN Constipation unrelieved by MOM Dexamethasone 6 mg 11/15/21 11:00 11/17/21 09:42 Dexamethasone 4 Mg/Ml Vial IV 11/24/21 10:01 6 mg DAILY ARYA Administration Folic Acid 1 mg 11/12/21 10:00 11/17/21 09:41 Folic Acid 1 Mg Tab PO 1 mg QDAY ARYA Administration Guaifenesin 10 ml 11/15/21 02:40 11/17/21 14:24 Guaifenesin Dm 200/20 Mg Oral Liqd 10 Ml PO 10 ml Q6H PRN Administration Cough Hydromorphone HCl 1 mg 11/12/21 15:08 11/18/21 06:06 Hydromorphone 1 Mg/1 Ml Inj IV 1 mg Q8H PRN Administration Pain , Severe (7-10) REMDESIVIR 100 mg/ Sodium 250 mls @ 500 mls/hr 11/16/21 21:00 11/17/21 21:55 Chloride IV 11/19/21 21:29 500 mls/hr Q24HR@2100 ARYA Administration Sodium Chloride 1,000 mls @ 125 mls/hr 11/17/21 20:04 11/18/21 07:30 Nacl 0.9% 1000 Ml IV 125 mls/hr DIRECT ARYA Administration Magnesium Hydroxide 30 ml 11/11/21 14:37 11/15/21 03:11 Magnesium Hydroxide (Mom) Oral Liqd Udc PO 30 ml Q4H PRN Administration Constipation Metoprolol Tartrate 12.5 mg 11/13/21 22:00 11/17/21 21:56 Metoprolol Tartrate 25 Mg Tab PO 12.5 mg BID ARYA Administration Multivitamins 1 each 11/11/21 15:00 11/17/21 09:42 Multivitamins ,Therapeutic Tab PO 1 each QDAY ARYA Administration Ondansetron HCl 4 mg 11/11/21 14:40 Ondansetron 4 Mg/2 Ml Inj IV Q8H PRN Nausea And Vomiting Senna 17.2 mg 11/11/21 22:00 11/17/21 21:55 Sennosides 8.6 Mg Tab PO 17.2 mg QHS ARYA Administration Sodium Chloride 50 ml 11/15/21 13:00 11/17/21 22:14 Sodium Chloride 0.9% 50 Ml Ivpb IV 11/19/21 21:01 Not Given Q24HR@2100 [facility]
[2021-11-18] MEDS: MULTIVITAMINS ,THERAPEUTIC TAB PO SCH (09:47)
[2021-11-18] MEDS: METOPROLOL TARTRATE 25 MG TAB PO SCH (09:49)
[2021-11-18] MEDS: FOLIC ACID 1 MG TAB PO SCH (09:49)
[2021-11-18 09:56] LABS: Alanine Aminotransferase 38 units/L (7-56); Albumin 3.2 g/dL (3.9-5); Blood Urea Nitrogen 10 mg/dL (9-20); Calcium 8.8 mg/dL (8.4-10.2); Hemolysis Index 22
[2021-11-18 09:59] LABS: BUN/Creatinine Ratio 17
[2021-11-18] MEDS: DEXAMETHASONE 4 MG TAB PO SCH (13:18)
--- NOTE | 2021-11-18 14:08 | Progress Note ---
Assessment and Plan Cultures: SARS CoV2 PCR: Positive 11/11/2021 blood culture: No growth A/P: 26-year-old patient with sickle cell disease with: #Bilateral pneumonia: Secondary to COVID-19. labs revealed leukocytosis, total bilirubin 5.4, AST 42, LDH 443, procalcitonin 0.16, ferritin 2237, CRP 1.2. CTA negative for pulmonary embolism, showed moderate bilateral multifocal pneumonia. #Acute hypoxic respiratory failure: Secondary to above. On NC. #Sickle cell crisis, elevated bilirubin #Leukocytosis: Likely reactive to COVID-19, steroids, sickle cell crisis Recs: -continue IV/PO Dexamethasone x 10 days -continue IV remdesivir x 5 days -Not a candidate for Actemra -prophylactic anticoagulation based on d-dimer per hospital protocol -Completed empiric ceftriaxone course, procal is low -Sickle crisis management per primary -ambulatory sats, oxygen weaning Will sign off. Please call with questions. Gabriela Magaña MD, FACP, [facility] ([facility] O: [phone] F: [phone] Subjective Date of service: 11/18/21 Interval history: low grade fever. on oxygen. Objective - Exam Narrative Exam: Physical Exam (reviewed in chart to minimize risk of transmission) Constitutional: deferred Head, Ears, Nose: deferred Eyes: deferred Neck: deferred Oral: deferred Cardiovascular: deferred Respiratory: deferred GI: deferred Musculoskeletal: deferred Skin: deferred Hem/Lymphatic: deferred Psych: deferred Neurological: deferred - Constitutional Vitals: Vital Signs Temp Pulse Resp BP Pulse Ox 100.0 F H 86 18 110/49 97 11/18/21 12:47 11/18/21 12:47 11/18/21 12:47 11/18/21 12:47 11/18/21 13:58 Temperature -Last 24 Hours Temperature 100.0 F Temperature 99.1 F Temperature 98.4 F Temperature 98.3 F - Labs CBC & Chem 7: 11/17/21 07:51 11/18/21 09:21 Labs: Abnormal lab results 11/18/21 Range/Units 09:21 Creatinine 0.6 L (0.8-1.3) mg/dL Total Bilirubin 2.70 H (0.1-1.2) mg/dL Alkaline Phosphatase 248 H (35-129) units/L Albumin 3.2 L (3.9-5) g/dL
[2021-11-18] MEDS ORDERED: SODIUM CHLORIDE 0.9% 500 ML 500 ML IV NR (15:25)
[2021-11-18] MEDS: REMDESIVIR 100 MG in SODIUM CHLORIDE 0.9% 250ML 250 ML IV SCH (21:14)
[2021-11-18] MEDS: SENNOSIDES 8.6 MG TAB PO SCH ×2 (21:14→21:28)
[2021-11-18] MEDS: SODIUM CHLORIDE 0.9% 50 ML IVPB IV SCH (21:17)
[2021-11-19] MEDS: METOPROLOL TARTRATE 25 MG TAB PO SCH ×3 (00:25→21:44)
[2021-11-19] MEDS: HYDROmorphone 1 MG/1 ML INJ IV PRN ×3 (05:23→21:02)
[2021-11-19] MEDS: FOLIC ACID 1 MG TAB PO SCH (11:41)
[2021-11-19] MEDS: DEXAMETHASONE 4 MG TAB PO SCH (13:40)
[2021-11-19] MEDS: MULTIVITAMINS ,THERAPEUTIC TAB PO SCH (13:42)
--- NOTE | 2021-11-19 20:03 | Progress Note ---
Assessment and Plan Assessment and plan: Patient is on 3 L nasal cannula oxygen today[s/p 15 L Ventimask ] Slowly wean as tolerated, home O2 evaluation prior to discharge --Sickle cell anemia; Hb 6.7, 1 unit of PRBC transfusion Closely monitor H&H and transfuse as needed --COVID-19 positive 11/13/2021 Elevated inflammatory markers Patient is hypoxia on 15 L of Ventimask titrated to 3 lt Continue steroids, continue remdesivir ID following, prone positioning, Home O2 evaluation -- Acute hypoxic respiratory failure Requiring 15 L/50%/96 O2 sat on Ventimask improved to 3 L daily Due to COVID-19 pneumonia -- History of COVID-19 pneumonia prior to admission --Sepsis due to multifocal bilateral pneumonia; Empiric antibiotics Rocephin and Zithromax minimal elevation of procalcitonin defer to ID recommendation regarding antibiotics --Sickle cell disease with painful crisis; IV fluids, pain medication, oxygen titrate O2 sats to more than 90% Thiamine folic acid, Supportive care --Sickle cell anemia; hemoglobin 7.2-7.7 Closely monitor H&H, transfuse as needed --Elevated D-dimers :CTA negative for PE lower extremity venous Doppler negative for DVT --Leukocytosis; worsening Possible UTI, empiric antibiotics Closely monitor --Obesity; BMI 30.0 Advised diet modification, exercise as tolerated and weight reduction When medically stable --DVT prophylaxis;Subcu Lovenox Closely monitor patient and adjust the management as needed Plan of care reviewed with the patient and his nurse I also discussed with the law enforcement officers, answered their questions Continue current management Home O2 evaluation Possible discharge in 1 to 2 days if stable Brief history; 26-year-old incarcerated -[place] male patient with history of sickle cell anemia admitted with painful crisis Work-up is consistent with COVID-19 pneumonia with hypoxia, ID evaluated on steroid remdesivir, oxygen of 15 L gradually weaned to 3 L today Receiving 1 unit PRBC, discharged on home oxygen when medically stable 11/13/2021; history of COVID-19, elevated inflammatory markers Patient also has multifocal pneumonia and UTI, on IV Zithromax and Rocephin Follow cultures, worsening leukocytosis, consider ID evaluation Continue current management 11/14/2021; Rich PCR test positive on 11/13/2021 Patient is saturating on room air Persistent fever, leukocytosis, ID consult 11/15/2021; ID evaluation noted and appreciated Closely monitor the patient and adjust the management as needed Home oxygen evaluation prior to discharge 11/16/2021; patient currently on 3 L of nasal cannula oxygen[improved from 15 L Ventimask yesterday] Will continue dexamethasone and remdesivir for his COVID 19 infection Enforcement officers outside the door 11/17/2021; patient on 3 L of nasal cannula oxygen, 2 / 4 remdesivir, third dose Thursday, fourth dose Thursday Possible discharge on Thursday/Thursday if stable on home oxygen Worsening leukocytosis, probably due to steroids 11/18/2021; as of last night patient is still on 3 L nasal cannula, wean as tolerated, home O2 set up prior to discharge 3/4 remdesivir, possible discharge in 1 to 2 days if stable Transfuse 1 unit of PRBC Hb 6.7 11/19/2021; patient is on 2 to 3 L of nasal cannula oxygen, receiving PRBC transfusion, continue steroid and remdesivir ID following, discharge when stable History Interval history: I have seen and examined the patient at the bedside patient's chart and medications reviewed Isolation precautions and PPE protocols strictly followed Hospitalist Physical - Constitutional Vitals: Temp Pulse Resp BP Pulse Ox 99.2 F 73 18 102/53 95 11/19/21 17:15 11/19/21 17:15 11/19/21 17:15 11/19/21 17:15 11/19/21 17:15 General appearance: Present: no acute distress, well-nourished, other (3 L nasal cannula oxygen) - EENT Eyes: Present: PERRL, EOM intact - Neck Neck: Present: supple, normal ROM - Respiratory Respiratory effort: normal Respiratory: bilateral: diminished, rhonchi, negative: rales, wheezing - Cardiovascular Rhythm: regular Heart Sounds: Present: S1 & S2 - Extremities Extremities: no ischemia, No edema - Abdominal General gastrointestinal: soft, non-tender, non-distended, normal bowel sounds - Integumentary Integumentary: Present: clear, warm - Psychiatric Psychiatric: appropriate mood/affect, cooperative - Neurologic Neurologic: moves all extremities HEART Score - HEART Score Troponin: Troponin T < 0.010 ng/mL (0.00-0.029) 11/11/21 08:55 Results - Labs CBC & Chem 7: 11/17/21 07:51 11/18/21 09:21 Labs: Laboratory Last Values WBC 27.3 K/mm3 (4.5-11.0) H 11/17/21 07:51 RBC 2.13 M/mm3 (3.65-5.03) L 11/17/21 07:51 Hgb 6.7 gm/dl (11.8-15.2) L 11/17/21 07:51 Hct 21.3 % (35.5-45.6) L 11/17/21 07:51 MCV 100 fl (84-94) H 11/17/21 07:51 MCH 31 pg (28-32) 11/17/21 07:51 MCHC 31 % (32-34) L 11/17/21 07:51 RDW 20.2 % (13.2-15.2) H 11/17/21 07:51 Plt Count 324 K/mm3 (140-440) 11/17/21 07:51 [place] % (Auto) Zoning Engineer 11/17/21 07:51 Add Manual Diff Complete 11/17/21 07:51 Total Counted 100 11/17/21 07:51 Seg Neuts % (Manual) 77.0 % (40.0-70.0) H 11/17/21 07:51 Band Neutrophils % 0 % 11/17/21 07:51 Lymphocytes % (Manual) 9.0 % (13.4-35.0) L 11/17/21 07:51 Reactive Lymphs % (Man) 0 % 11/17/21 07:51 Monocytes % (Manual) 14.0 % (0.0-7.3) H 11/17/21 07:51 Eosinophils % (Manual) 0 % (0.0-4.3) 11/17/21 07:51 Basophils % (Manual) 0 % (0.0-1.8) 11/17/21 07:51 Metamyelocytes % 0 % 11/17/21 07:51 Myelocytes % 0 % 11/17/21 07:51 Promyelocytes % 0 % 11/17/21 07:51 Blast Cells % 0 % 11/17/21 07:51 Nucleated RBC % 1.0 % (0.0-0.9) H 11/17/21 07:51 Seg Neutrophils # Man 21.0 K/mm3 (1.8-7.7) H 11/17/21 07:51 Band Neutrophils # 0.0 K/mm3 11/17/21 07:51 Lymphocytes # (Manual) 2.5 K/mm3 (1.2-5.4) 11/17/21 07:51 Abs React Lymphs (Man) 0.0 K/mm3 11/17/21 07:51 Monocytes # (Manual) 3.8 K/mm3 (0.0-0.8) H 11/17/21 07:51 Eosinophils # (Manual) 0.0 K/mm3 (0.0-0.4) 11/17/21 07:51 Basophils # (Manual) 0.0 K/mm3 (0.0-0.1) 11/17/21 07:51 Metamyelocytes # 0.0 K/mm3 11/17/21 07:51 Myelocytes # 0.0 K/mm3 11/17/21 07:51 Promyelocytes # 0.0 K/mm3 11/17/21 07:51 Blast Cells # 0.0 K/mm3 11/17/21 07:51 WBC Morphology Not Reportable 11/17/21 07:51 Hypersegmented Neuts Not Reportable 11/17/21 07:51 Hyposegmented Neuts Not Reportable 11/17/21 07:51 Hypogranular Neuts Not Reportable 11/17/21 07:51 Smudge Cells Not Reportable 11/17/21 07:51 Toxic Granulation Not Reportable 11/17/21 07:51 Toxic Vacuolation Not Reportable 11/17/21 07:51 Dohle Bodies Not Reportable 11/17/21 07:51 Pelger-Huet Anomaly Not Reportable 11/17/21 07:51 Aric Rods Not Reportable 11/17/21 07:51 Platelet Estimate Consistent w auto 11/17/21 07:51 Clumped Platelets Not Reportable 11/17/21 07:51 Plt Clumps, EDTA Not Reportable 11/17/21 07:51 Large Platelets Not Reportable 11/17/21 07:51 Giant Platelets Few 11/17/21 07:51 Platelet Satelliting Not Reportable 11/17/21 07:51 Plt Morphology Comment Not Reportable 11/17/21 07:51 RBC Morphology Not Reportable 11/17/21 07:51 Dimorphic RBCs Not Reportable 11/17/21 07:51 Polychromasia 1+ 11/17/21 07:51 Hypochromasia 1+ 11/17/21 07:51 Poikilocytosis Not Reportable 11/17/21 07:51 Anisocytosis 1+ 11/17/21 07:51 Microcytosis Not Reportable 11/17/21 07:51 Macrocytosis Not Reportable 11/17/21 07:51 Spherocytes Not Reportable 11/17/21 07:51 Pappenheimer Bodies Not Reportable 11/17/21 07:51 Sickle Cells Not Reportable 11/17/21 07:51 Target Cells 1+ 11/17/21 07:51 Tear Drop Cells Not Reportable 11/17/21 07:51 Ovalocytes Not Reportable 11/17/21 07:51 Helmet Cells Not Reportable 11/17/21 07:51 Escobar-Whalan Bodies Not Reportable 11/17/21 07:51 Meadow Rings Not Reportable 11/17/21 07:51 Kaveh Cells Not Reportable 11/17/21 07:51 Bite Cells Not Reportable 11/17/21 07:51 Crenated Cell Not Reportable 11/17/21 07:51 Elliptocytes Not Reportable 11/17/21 07:51 Acanthocytes (Spur) Not Reportable 11/17/21 07:51 Rouleaux Not Reportable 11/17/21 07:51 Hemoglobin C Crystals Not Reportable 11/17/21 07:51 Schistocytes Not Reportable 11/17/21 07:51 Malaria parasites Not Reportable 11/17/21 07:51 Percent Retic 8.16 % (0.78-2.58) H 11/11/21 08:55 Joseph Bodies Not Reportable 11/17/21 07:51 Hem Pathologist Commnt No 11/17/21 07:51 PT 13.6 Sec. (12.2-14.9) 11/11/21 08:55 INR 0.94 (0.87-1.13) 11/11/21 08:55 D-Dimer 4072.35 ng/mlDDU (0-234) H 11/14/21 05:28 Sodium 137 mmol/L (137-145) 11/18/21 09:21 Potassium 3.8 mmol/L (3.6-5.0) 11/18/21 09:21 Chloride 101.4 mmol/L (98-107) 11/18/21 09:21 Carbon Dioxide 22 mmol/L (22-30) 11/18/21 09:21 Anion Gap 17 mmol/L 11/18/21 09:21 BUN 10 mg/dL (9-20) 11/18/21 09:21 Creatinine 0.6 mg/dL (0.8-1.3) L 11/18/21 09:21 Estimated GFR > 60 ml/min 11/18/21 09:21 BUN/Creatinine Ratio 17 % 11/18/21 09:21 Glucose 96 mg/dL (75-100) 11/18/21 09:21 Lactic Acid 0.90 mmol/L (0.7-2.0) 11/11/21 11:18 Calcium 8.8 mg/dL (8.4-10.2) 11/18/21 09:21 Magnesium 2.80 mg/dL (1.7-2.3) H 11/17/21 07:51 Ferritin > 2000.0 ng/mL (30.0-300.0) H 11/14/21 05:28 Total Bilirubin 2.70 mg/dL (0.1-1.2) H 11/18/21 09:21 AST 30 units/L (5-40) 11/18/21 09:21 ALT 38 units/L (7-56) 11/18/21 09:21 Alkaline Phosphatase 248 units/L (35-129) H 11/18/21 09:21 Lactate Dehydrogenase 1740 units/L (91-180) H 11/14/21 05:28 Total Creatine Kinase 70 units/L (55-170) 11/11/21 08:55 Troponin T < 0.010 ng/mL (0.00-0.029) 11/11/21 08:55 C-Reactive Protein 30.00 mg/dL (0.00-1.30) H 11/14/21 05:28 Total Protein 7.0 g/dL (6.3-8.2) 11/18/21 09:21 Albumin 3.2 g/dL (3.9-5) L 11/18/21 09:21 Albumin/Globulin Ratio 0.8 % 01/17/22 09:21 Procalcitonin 0.16 ng/mL (<0.15) 11/11/21 11:18 Coronavirus (PCR) Positive (Negative) A 11/13/21 Unknown Blood Type O POSITIVE 11/18/21 19:07 Antibody Screen Negative 11/18/21 19:07 Crossmatch See Detail 11/18/21 19:07 Bennett/IV: Voiding Method Toilet Active Medications - Current Medications Current Medications: Generic Name Dose Route Start Last Admin Trade Name Freq PRN Reason Stop Dose Admin Bisacodyl 10 mg 11/11/21 14:40 Bisacodyl 10 Mg Rect Supp SD QDAY PRN Constipation unrelieved by MOM Dexamethasone 6 mg 11/18/21 10:00 11/19/21 13:40 Dexamethasone 4 Mg Tab PO 11/24/21 11:59 6 mg DAILY ARYA Administration Folic Acid 1 mg 11/12/21 10:00 11/19/21 11:41 Folic Acid 1 Mg Tab PO 1 mg QDAY ARYA Administration Guaifenesin 10 ml 11/15/21 02:40 11/17/21 14:24 Guaifenesin Dm 200/20 Mg Oral Liqd 10 Ml PO 10 ml Q6H PRN Administration Cough Hydromorphone HCl 1 mg 11/12/21 15:08 11/19/21 13:39 Hydromorphone 1 Mg/1 Ml Inj IV 1 mg Q8H PRN Administration Pain , Severe (7-10) REMDESIVIR 100 mg/ Sodium 250 mls @ 500 mls/hr 11/16/21 21:00 11/19/21 05:04 Chloride IV 11/19/21 21:29 Infused Q24HR@2100 ARYA Infusion Sodium Chloride 1,000 mls @ 125 mls/hr 11/17/21 20:04 11/18/21 16:11 Nacl 0.9% 1000 Ml IV 125 mls/hr DIRECT ARYA Administration Magnesium Hydroxide 30 ml 11/11/21 14:37 11/15/21 03:11 Magnesium Hydroxide (Mom) Oral Liqd Udc PO 30 ml Q4H PRN Administration Constipation Metoprolol Tartrate 12.5 mg 11/13/21 22:00 11/19/21 00:25 Metoprolol Tartrate 25 Mg Tab PO Not Given BID [facility] Multivitamins 1 each 11/11/21 15:00 11/19/21 13:42 Multivitamins ,Therapeutic Tab PO 1 each QDAY ARYA Administration Ondansetron HCl 4 mg 11/11/21 14:40 Ondansetron 4 Mg/2 Ml Inj IV Q8H PRN Nausea And Vomiting Senna 17.2 mg 11/11/21 22:00 11/18/21 21:28 Sennosides 8.6 Mg Tab PO Not Given QHS ARYA Sodium Chloride 50 ml 11/15/21 13:00 11/18/21 21:17 Sodium Chloride 0.9% 50 Ml Ivpb IV 11/19/21 21:01 50 ml Q24HR@2100 ARYA Administration Nutrition/Malnutrition Assess - Dietary Evaluation Nutrition/Malnutrition Findings: Nutrition Notes Start: 11/18/21 10:41 Freq: Status: Active Protocol: Document 11/18/21 10:41 MIRA (Rec: 11/18/21 10:45 MIRA [id number]) Nutrition Notes Need for Assessment generated from: LOS Initial or Follow up Brief Note Current Diet Regular Height 5 ft 10 in Weight 94.3 kg [place] Body Weight (kg) 75.45 BMI 29.8 Subjective/Other Information Pt screened for LOS. He has consumed 75% of meals since admission. Percent of energy/protein needs met: 69% energy 89% pro Burn Absent Trauma Absent Current % PO Good (75-100%) Minimum of two criteria No Is patient on ventilator? No Is Patient Ambulatory and/or Out of Bed Yes [facility]OOB) [ 2495.025 [id number]] Calculation Used for Recommendations [facility] Additional Notes Pro needs 0.8-1g/k-94g/ day Fluid needs 1ml/kcal Nutrition Intervention Follow-Up By: 11/25/21 Additional Comments F/U: intakes, need for full assessment
[2021-11-19] MEDS: SENNOSIDES 8.6 MG TAB PO SCH (21:42)
[2021-11-19] MEDS: SODIUM CHLORIDE 0.9% 50 ML IVPB IV SCH (21:42)
[2021-11-19] MEDS: REMDESIVIR 100 MG in SODIUM CHLORIDE 0.9% 250ML 250 ML IV SCH (21:42)
[2021-11-20] MEDS: HYDROmorphone 1 MG/1 ML INJ IV PRN (04:27)
[2021-11-20] MEDS: DEXAMETHASONE 4 MG TAB PO SCH (09:16)
[2021-11-20] MEDS: MULTIVITAMINS ,THERAPEUTIC TAB PO SCH (09:16)
[2021-11-20] MEDS: FOLIC ACID 1 MG TAB PO SCH (09:16)
[2021-11-20] MEDS: METOPROLOL TARTRATE 25 MG TAB PO SCH (09:20)
[2021-11-20 09:56] LABS: Hematocrit 26.2 % (35.5-45.6); Hemoglobin 8.2 gm/dl (11.8-15.2); Mean Corpuscular HGB Conc 31 % (32-34); Mean Corpuscular Volume 102 fl (84-94); Platelet Count 822 K/mm3 (140-440); Red Blood Count 2.56 M/mm3 (3.65-5.03)
[2021-11-20 10:04] LABS: Red Cell Distribution Width 23.7 % (13.2-15.2)
[2021-11-20 10:09] LABS: Blood Urea Nitrogen 8 mg/dL (9-20); Hemolysis Index 2
[2021-11-20 10:13] LABS: BUN/Creatinine Ratio 13
[2021-11-20 10:58] LABS: Anisocytosis 2+; Basophils % (Manual) 0 % (0.0-1.8); Eosinophils % (Manual) 0 % (0.0-4.3); Total Cells Counted 100
[2021-11-20 10:59] LABS: Sickle Cells Few; Target Cells 1+
[2021-11-20 11:00] LABS: Poikilocytosis 2+
[2021-11-20 11:01] LABS: Giant Platelets Few; Large Platelets 1+; Platelet Estimate Cons
--- NOTE | 2021-11-20 12:53 | Discharge Summary ---
Providers - Providers Date of Admission: 11/11/21 18:15 Date of discharge: 11/20/21 Attending physician: JOHN HONEYCUTT 11/14/21 20:03 Consult to Physician [CONS] Routine Comment: Consulting Provider: DARREL NUÑEZ Physician Instructions: Reason For Exam: COVID-19/fever / multifocal pneumonia/sickle ceLL Primary care physician: ECDIS N NAVIGATION OPERATOR Hospitalization Condition: Good Pertinent studies: Chest x-ray, chest CTA, lower extremity venous Doppler Hospital course: 26-year-old incarcerated -Greek male patient with history of sickle cell anemia admitted with painful crisis Work-up is consistent with COVID-19 pneumonia with hypoxia, ID evaluated, placed on steroid remdesivir, oxygen of 15 L gradually weaned to RA today Received 1 unit PRBC, discharged to snf custody in stable condition Daily clinical course: 11/13/2021; history of COVID-19, elevated inflammatory markers Patient also has multifocal pneumonia and UTI, on IV Zithromax and Rocephin Follow cultures, worsening leukocytosis, consider ID evaluation Continue current management 11/14/2021; Rich PCR test positive on 11/13/2021 Patient is saturating on room air Persistent fever, leukocytosis, ID consult 11/15/2021; ID evaluation noted and appreciated Closely monitor the patient and adjust the management as needed Home oxygen evaluation prior to discharge 11/16/2021; patient currently on 3 L of nasal cannula oxygen[improved from 15 L Ventimask yesterday] Will continue dexamethasone and remdesivir for his COVID 19 infection Enforcement officers outside the door 11/17/2021; patient on 3 L of nasal cannula oxygen, 2 / 4 remdesivir, third dose Thursday, fourth dose Thursday Possible discharge on Thursday/Thursday if stable on home oxygen Worsening leukocytosis, probably due to steroids 11/18/2021; as of last night patient is still on 3 L nasal cannula, wean as tolerated, home O2 set up prior to discharge 3/4 remdesivir, possible discharge in 1 to 2 days if stable Transfuse 1 unit of PRBC Hb 6.7 11/19/2021; patient is on 2 to 3 L of nasal cannula oxygen, receiving PRBC transfusion, continue steroid and remdesivir ID following, discharge when stable 11/20/20: Patient appeared to be resting on room air, blood pressure slightly soft given a liter of bolus. Received 1 unit of blood transfusion yesterday, H&H today stable. Patient will be discharged today in stable condition. Disposition: HOME / SELF CARE / HOMELESS Final Discharge Diagnosis (Prints w/discharge instructions): -- Sickle cell disease with painful crisis. -- COVID-19 positive. -- Acute hypoxic respiratory failure. --Sepsis due to multifocal bilateral pneumonia. ----Elevated D-dimers :CTA negative for PE. lower extremity venous Doppler negative for DVT. -- Obesity with a BMI 29.8 Time spent for discharge: 34 minutes Core Measure Documentation - Palliative Care Palliative Care/ Comfort Measures: Not Applicable - Core Measures Any of the following diagnoses?: none Exam - Physical Exam Narrative exam: Limited physical exam due to COVID-19 pandemic to minimize transmission of the disease and to preserve PPE. Vital reviewed and stable. GENERAL: well-developed well-nourished AAM lying on bed appeared to be in no discomfort. HEENT: Normocephalic. Atraumatic. NECK: Supple. CHEST/LUNGS: breathing nonlabored. HEART/CARDIOVASCULAR: Heart rate stable on telemetry ABDOMEN: Visibly not distended SKIN: There is no rash NEURO: No focal motor deficit. Follows command. MUSCULOSKELETAL: No joint effusion EXTRIMITY: No swelling, no cyanosis or clubbing. PSYCH: Cooperative. - Constitutional Vitals: Temp Pulse Resp BP Pulse Ox 98.3 F 76 18 93/46 96 11/20/21 05:18 11/20/21 09:20 11/20/21 05:18 11/20/21 09:20 11/20/21 05:18 Plan Activity: advance as tolerated Weight Bearing Status: Weight Bear as Tolerated Diet: regular Additional Instructions: f/u with mediator in one week, repeat CBC and CMP in 1 week. Patient is medically stable for discharge today. Patient advised to follow-up primary care physician within 1 to 2 weeks. Advised to comply with medications diet and follow-up visits. If he has worsening symptoms advised him to contact primary care physician go to the nearest emergency room as needed. Comply with CDC guideline for COVID-19 pneumonia quarantine protocol. Follow up with: PRIMARY CARE, [Primary Care Provider] - 3-5 Days Prescriptions: dexAMETHasone [Decadron] 6 mg PO DAILY #4 tablet Folic Acid [Folvite] 1 mg PO QDAY #4 tablet oxyCODONE /ACETAMINOPHEN [Percocet 5/325] 1 tab PO Q6HR PRN #10 tablet PRN Reason: Pain
[2021-11-20] MEDS ORDERED: SODIUM CHLORIDE 0.9% 1000 ML 1,000 ML IV ONE (15:15)
[2021-11-20 17:07] VITALS: BP 95/48
== END 2021-11-20 18:51 | DRG 871 ==
LOC: ED 08:10 → EEVIPCON 08:10 → 3A 10:27 → OBSVTOIN 18:15 → 3A 11-13 19:32
PROVIDERS: ADMIT Internal Medicine; ATTEND Internal Medicine
PROC: XW033E5 Introduction of Remdesivir Anti-infective into Peripheral Vein, Percutaneous Approach, New Technology Group 5 (ICD-10-PCS; principal; 2021-11-15)
PROC: 30233N1 Transfusion of Nonautologous Red Blood Cells into Peripheral Vein, Percutaneous Approach (ICD-10-PCS; 2021-11-19)
DX: A41.9 Sepsis, unspecified organism (principal); U07.1 COVID-19; D57.00 Hb-SS disease with crisis, unspecified; J96.01 Acute respiratory failure with hypoxia; J12.82 Pneumonia due to coronavirus disease 2019; R91.8 Other nonspecific abnormal finding of lung field; Z28.9 Immunization not carried out for unspecified reason; Z88.6 Allergy status to analgesic agent; Z88.8 Allergy status to other drugs, medicaments and biological substances; E66.9 Obesity, unspecified; Z68.29 Body mass index [BMI] 29.0-29.9, adult
CPT/HCPCS: 36415; 71045; 71275; 80048; 80053; 82140; 82550; 82728; 82947; 83615; 83735; 84145; 84484; 85007; 85025; 85045; 85379; 85610; 85660; 86140; 86850; 86900; 86901; 86920; 87040; 87086; 93005; 93970; 94760; G0378; J3490; Q0162; J0456; J0696; J1100; J1170; J1885; J7030; J7050; J8540; P9016; Q9967; U0003